=== PATIENT | female | born 1950 | race Caucasian/White ===

== ENCOUNTER 2017-03-20 09:08 | Emergency (ER) | payer MEDICARE, OTHER ==
[~2017-03-20] VITALS: Ht 165.1 cm; Wt 80.7 kg
[~2017-03-20 09:08] MED LIST: ACET-1574 PO; ACET-704 PO; ALLO100T PO; AMLO10TA2 PO; AMLO5TAB2 PO; ASPI325T8 PO; AZIT250T PO; BENZ100C PO; BISA5TAB4 PO; CEFE2PIG IV; CHOL2000 PO; CRESTOR10 MG PO; ESOM40CA PO; FLAX100017 PO; FOLI0.8T33 PO; FURO40TA4 PO; GLYB5TAB3 PO; GUAI5SYR PO; HYDR-2758 PO; HYDR115S2 PO; INSU100I13 SQ; IPRA3AMP NEB; IPRA3AMP23 IH; LEVO750T31 PO; LINA5TAB4 PO; LOSA100T6 PO; MAGN2400 PO; METF100010 PO; METF10002 PO; METO100T5 PO; METO2.5T PO; METO2.5T5 PO; OMEG1CAP6 PO; PANT40TA3 PO; PIOG15TA42 PO; POTA8CAP PO; PRED20TA PO; SERT50TA8 PO; SITA100T; SITA100T PO; VITA400C11 PO
[2017-03-20] MEDS ORDERED: HYDR-2758 PO (09:45)
[2017-03-20] MEDS ORDERED: CIPR10DR AS (09:45)
[2017-03-20] MEDS ORDERED: CLIN300C8 PO (09:45)
--- NOTE | 2017-03-20 09:45 | PHYS DOC ---
Past History Past Medical History: Anxiety, COPD, Depression, Diabetes, DVT, High Cholesterol, Hypertension Past Surgical History: Hysterectomy Smoking: Non-smoker Alcohol Use: None Drug Use: None Adult General Chief Complaint Chief Complaint: SORE THROAT HPI HPI She is a pleasant 75-year-old female with history of hypertension, hyperlipidemia, question will COPD, diabetes who presents with ear pain that began for 5 days ago. Patient began with itching she experience for 5 days ago in her left ear she's been attempting to use Q-tips to scratch that local itch. Since that time she had increasing pain over the ear itself with radiation to the left jaw and left lower portion of the stroke. She's had a mild sore throat with no change in voice some difficulty swallowing secondary to the pain without cough, fevers, chills or other symptoms. Patient denies any trauma to her face, denies any pain with chewing specifically over the teeth of her lower left jaw. Patient denies any hot and cold intolerance of those teeth. Patient further denies any headache, rash on her face or neck stiffness. Review of Systems Review of Systems Constitutional: Denies fever or chills [] Eyes: Denies change in visual acuity, redness, or eye pain [] HENT: Patient has had a sore throat without change in voice and no neck stiffness. Respiratory: Denies cough or shortness of breath [] Cardiovascular: No additional information not addressed in HPI [] GI: Denies abdominal pain, nausea, vomiting, bloody stools or diarrhea [] : Denies dysuria or hematuria [] Musculoskeletal: Denies back pain or joint pain [] Integument: Denies rash or skin lesions [] Neurologic: Denies headache, focal weakness or sensory changes [] Endocrine: Denies polyuria or polydipsia [] Allergies Allergies Allergies Coded Allergies Type Severity Reaction Last Updated Verified cefepime Allergy Intermediate Severe Nausea and Vomiting 01/07/14 Yes Physical Exam Physical Exam Vital signs recorded on the chart patient noted to be hypertensive. Constitutional: Well developed, well nourished, patient is obviously uncomfortable but no obvious swelling to the face.. [] HENT: Normocephalic, atraumatic, bilateral external ears normal, oropharynx moist, no oral exudates, patient has mild erythema but no tonsillar hypertrophy. Nose normal. Patient has redness and swelling in the external canal of the left ear. There is no obstruction no drainage. There is pain with movement of the tragus and over the external pinna.[] Eyes: PERRLA, EOMI, conjunctiva normal, no discharge. [] Neck: Normal range of motion, no tenderness, supple, no stridor. She does have reactive lymphadenopathy in anterior cervical chain. Cardiovascular:Heart rate regular rhythm, no murmur [] Lungs & Thorax: Bilateral breath sounds clear to auscultation [] Skin: Warm, dry, no erythema, no rash. [] Neurologic: Alert and oriented X 3, normal motor function, normal sensory function, no focal deficits noted. [] Psychologic: Affect normal, judgement normal, mood normal. [] EKG EKG [] Radiology/Procedures Radiology/Procedures [] Course & Med Decision Making Course & Med Decision Making Pertinent Labs and Imaging studies reviewed. (See chart for details) Patient rapid strep test is positive here in the emergency department as well as positive findings for otitis externa on the left. Post on appropriate antibiotics to treat both etiologies include acetic acid in order to treat and dry at the external ear. Patient will be given some steroids here in the emergency department to include by mouth Decadron as well as some Lortab to help with her symptoms. I will ask her to follow-up with her primary care doctor for repeat evaluation if symptoms not improved. [] Dragon Disclaimer Dragon Disclaimer This chart was dictated in whole or in part using Voice Recognition software in a busy, high-work load, and often noisy Emergency Department environment. It may contain unintended and wholly unrecognized errors or omissions. Departure Departure: Impression: Primary Impression: Pharyngitis Additional Impression: Otitis externa Disposition: 01 HOME, SELF-CARE Condition: IMPROVED Referrals: NON,STAFF (PCP) Patient Instructions: Otitis Externa, Viral and Bacterial Pharyngitis Additional Instructions: My discharge plan Follow up: In addition patient is asked to followup with their primary doctor, within a week for followup examination and to address patient's ongoing medical conditions. Because patient does not have a regular medical doctor, a local physician Resource Sheet will be provided to establish care primary care. Patient is advised that in the Emergency Department primary complaints are addressed and only in light of known signs and symptoms. Patient should return immediately to the emergency department if new signs and symptoms develop or patient's condition worsens in any way. At time of discharge patient was in stable condition and had verbalized understanding of the discharge instructions. Scripts Ciprofloxacin/Hydrocortisone (CIPRO HC OTIC SUSPENSION) 10 Ml Drops.susp 3 DROP BID, #10 ML Prov: ANIYA BACH MD 03/20/17 Hydrocodone Bit/Acetaminophen (HYDROCODONE-APAP 5-325 ) 1 Each Tablet 1 TAB PO PRN Q6HRS Y for PAIN for 5 Days, #14 TAB 0 Refills Prov: ANIYA BACH MD 03/20/17 Clindamycin Hcl (CLINDAMYCIN HCL) 300 Mg Capsule 1 CAP PO TID, #30 CAP Prov: ANIYA BACH MD 03/20/17 Problem Qualifiers ANIYA BACH MD Mar 20, 2017 09:45
[2017-03-20] MEDS ORDERED: DEXAMETHASONE SOD PHOS 10 MG/ML VIAL IV ONE (10:00)
[2017-03-20] MEDS ORDERED: HYDROcodone/APAP 5/325MG 1 TAB TABLET PO ONE (10:00)
[2017-03-20 10:04] VITALS: BP 162/73
== END 2017-03-20 10:05 | disposition home or self-care (01) ==
LOC: ER 09:08
DX: H60.92 Unspecified otitis externa, left ear (principal); J02.9 Acute pharyngitis, unspecified; E11.9 Type 2 diabetes mellitus without complications; E78.00 Pure hypercholesterolemia, unspecified; I10 Essential (primary) hypertension; J44.9 Chronic obstructive pulmonary disease, unspecified; Z86.718 Personal history of other venous thrombosis and embolism; Z88.8 Allergy status to other drugs, medicaments and biological substances
CPT/HCPCS: 87880; 96374; 99284; J1100

== ENCOUNTER → 2018-05-10 | Outpatient (CLI) | payer MEDICARE, OTHER ==
[~2018-05-10] MED LIST changes: -AMLO10TA2 PO; +AMLO10TA6 PO; -AMLO5TAB2 PO; +AMLO5TAB7 PO; +CIPR10DR AS; +CLIN300C8 PO; +HYDR-2155 PO; -HYDR-2758 PO; -IPRA3AMP NEB; +IPRA3AMP29 NEB; +IV NORMAL SALINE 1,000ML 1,000 ML IV ONE; +LOSA100T14 PO; -LOSA100T6 PO; -METF10002 PO; +METF10007 PO
[2018-05-10 16:03] VITALS: BP 128/79
== END | disposition home or self-care (01) ==
LOC: OPINF 15:55
PROVIDERS: ATTEND Family Medicine
DX: E86.0 Dehydration (principal); J44.9 Chronic obstructive pulmonary disease, unspecified; E78.00 Pure hypercholesterolemia, unspecified; E11.9 Type 2 diabetes mellitus without complications; I12.9 Hypertensive chronic kidney disease with stage 1 through stage 4 chronic kidney disease, or unspecified chronic kidney disease; E11.22 Type 2 diabetes mellitus with diabetic chronic kidney disease; N18.9 Chronic kidney disease, unspecified; K21.9 Gastro-esophageal reflux disease without esophagitis; J96.10 Chronic respiratory failure, unspecified whether with hypoxia or hypercapnia; G89.29 Other chronic pain; E78.5 Hyperlipidemia, unspecified; M10.9 Gout, unspecified; Z88.6 Allergy status to analgesic agent; Z88.1 Allergy status to other antibiotic agents; Z88.5 Allergy status to narcotic agent; Z88.8 Allergy status to other drugs, medicaments and biological substances; Z87.891 Personal history of nicotine dependence; Z87.01 Personal history of pneumonia (recurrent); Z86.718 Personal history of other venous thrombosis and embolism; Z79.82 Long term (current) use of aspirin
CPT/HCPCS: 36592; 96360; 96365; J7030

== ENCOUNTER → 2020-12-27 | Outpatient (CLI) | payer MEDICARE, OTHER ==
[2018-05-10 16:03] VITALS: BP 128/79
[~2020-12-27] MED LIST changes: -ACET-1574 PO; +ACET-1874 PO; +AMLO-186 PO; +AMLO-187 PO; -AMLO10TA6 PO; -AMLO5TAB7 PO; -CLIN300C8 PO; +CLIN300C9 PO; -IV NORMAL SALINE 1,000ML 1,000 ML IV ONE; -MAGN2400 PO; +MAGN24003 PO; +SERT-268 PO; -SERT50TA8 PO
--- NOTE | 2020-12-27 11:24 | RAD ---
EXAM: Chest, 2 views. HISTORY: Cough. COMPARISON: 06/13/2016 FINDINGS: 2 views of the chest are obtained. There are chronic appearing interstitial changes with velásquez perimposed lower lobe atelectasis or scarring. There is mild eventration of the right hemidiaphragm. There are clips overlying the right breast. There is a prominent cardiac silhouette. There is a promi nent right hilum likely due to prominent central pulmonary vessels or lymph nodes, stable in appearan ce. IMPRESSION: Chronic appearing interstitial changes with suspected lower lobe atelectasis or scarring. Electronically signed by: Pat Dougherty MD (12/27/2020 11:22 AM) [id number]
== END ==
LOC: RAD 10:48
PROVIDERS: ATTEND Nurse Practitioner Family
DX: J06.9 Acute upper respiratory infection, unspecified (principal); Q79.1 Other congenital malformations of diaphragm
CPT/HCPCS: 71046

== ENCOUNTER 2020-12-30 11:05 | Observation (INO) | payer MEDICARE, OTHER ==
[~2020-12-30] VITALS: Ht 165.1 cm; Wt 83.7 kg
[2020-12-30] MEDS ORDERED: IV NORMAL SALINE 1,000ML 1,000 ML IV ONE (11:30)
[2020-12-30] MEDS ORDERED: ONDANSETRON PF 4 MG/2 ML VIAL. IVP ONE (11:30)
--- NOTE | 2020-12-30 11:41 | PHYS DOC ---
Past History Past Medical History: Anxiety, COPD, Depression, Diabetes, DVT, High Cholesterol, Hypertension Past Surgical History: No Surgical History Smoking: Non-smoker Alcohol Use: None Drug Use: None General Adult EDM: Chief Complaint: DEHYDRATION HPI: HPI: 70-year-old female presents with headache, cough, 3 episodes of vomiting, and testing positive for COVID-19. Her primary care physician sent her to the emergency room for evaluation and for her dehydration and to see whether or not she needs to be hospitalized for COVID-19. She was vaccinated in July with the maternal vaccine. Patient is a smoker. No official COPD diagnosis. She does not use breathing treatments at home. She is not on oxygen. She states having low-grade fevers of 100. Denies chest pain. Review of Systems: Review of Systems: Constitutional: Fever, body aches, fatigue Eyes: Denies change in visual acuity HENT: Denies nasal congestion or sore throat Respiratory: Cough with shortness of breath Cardiovascular: Denies chest pain or edema GI: Nausea, Vomiting. Denies abdominal pain bloody stools or diarrhea : Denies dysuria Musculoskeletal: Denies back pain or joint pain Integument: Denies rash Neurologic: Denies headache, focal weakness or sensory changes Endocrine: Denies polyuria or polydipsia Lymphatic: Denies swollen glands Psychiatric: Denies depression or anxiety Current Medications: Current Meds: Current Medications Medications (Trade) Dose Ordered Sig/Parvin Start Time Stop Time Status Last Admin Dose Admin Ondansetron HCl (Zofran) 4 mg 1X ONCE 12/30/20 11:30 12/30/20 11:31 UNV Sodium Chloride 1,000 ml @ 1,000 mls/hr 1X ONCE 12/30/20 11:30 12/30/20 12:29 UNV Allergies: Allergies: Allergies Coded Allergies Type Severity Reaction Last Updated Verified cefepime Allergy Intermediate Severe Nausea and Vomiting 01/07/14 Yes Physical Exam: PE: Constitutional: Well developed, well nourished, no acute distress, non-toxic appearance. [] HENT: Normocephalic, atraumatic, bilateral external ears normal, oropharynx moist, no oral exudates, nose normal. [] Eyes: PERRLA, EOMI, conjunctiva normal, no discharge. [] Neck: Normal range of motion, no tenderness, supple, no stridor. [] Cardiovascular: Heart rate 60, regular rhythm, no murmur [] Lungs & Thorax: Bilateral expiratory wheezing throughout [] Abdomen: Bowel sounds normal, soft, no tenderness, no masses, no pulsatile masses. [] Skin: Warm, dry, no erythema, no rash. [] Back: No tenderness, no CVA tenderness. [] Extremities: No tenderness, no cyanosis, no clubbing, ROM intact, no edema. [] Neurologic: Alert and oriented X 3, normal motor function, normal sensory function, no focal deficits noted. [] Psychologic: Affect normal, judgement normal, mood normal. [] Current Patient Data: Vital Signs: Vital Signs Date Time Temp Pulse Resp B/P (MAP) Pulse Ox O2 Delivery O2 Flow Rate FiO2 12/30/20 11:20 98.2 95 22 130/53 98 Nasal Cannula 1.0 EKG: EKG: Sinus rhythm, rate 61, normal axis, no ST elevation or depression. [] Radiology/Procedures: Radiology/Procedures: [] Impressions: EXAM: Chest, single view. HISTORY: Covid 19. COPD. COMPARISON: 12/27/2020 FINDINGS: A frontal view of the chest is obtained. There is stable mild diffuse increased interstitial opacity. There is stable eventration of the right hemidiaphragm. There is a stable prominent cardiac silhouette. There is no consolidation, pleural effusion or pneumothorax. There are clips overlying the right breast. IMPRESSION: Stable diffuse interstitial prominence likely due to chronic interstitial change. No consolidated infiltrate is seen. Electronically signed by: Pat Velasco MD (12/30/2020 12:02 PM) [id number] DICTATED AND SIGNED BY: PAT VELASCO MD DATE: 12/30/20 1201 CC: BETHANY BRANCH DO; PAT FAJARDO MD ~MTH0 0 Heart Score: C/O Chest Pain: N/A Risk Factors: Risk Factors: DM, Current or recent (<one month) smoker, HTN, HLP, family history of CAD, obesity. Risk Scores: Score 0 - 3: 2.5% MACE over next 6 weeks - Discharge Home Score 4 - 6: 20.3% MACE over next 6 weeks - Admit for Clinical Observation Score 7 - 10: 72.7% MACE over next 6 weeks - Early Invasive Strategies Course & Med Decision Making: Course & Med Decision Making Pertinent Labs and Imaging studies reviewed. (See chart for details) The patient's chest x-ray is negative for acute findings. See official report for more details. Labs are significant for creatinine of 2.2. This is increased from her baseline of about 1.7. I will give her a liter of normal saline. The patient's urinalysis is suggestive of UTI. I will give her a gram of Rocephin. She is requiring supplemental oxygen to keep a saturation above 90%. I will admit her to the hospital. I spoke with Dr. Thomas and he has agreed to admission. [] Dragon Disclaimer: Dragon Disclaimer: This electronic medical record was generated, in whole or in part, using a voice recognition dictation system. Departure Departure: Impression: Primary Impression: COVID-19 Additional Impressions: Dehydration UTI (urinary tract infection) Qualified Codes: N30.01 - Acute cystitis with hematuria Disposition: ADMITTED INPATIENT Admitting Physician: Dimitrios Thomas Condition: STABLE Referrals: PAT FAJARDO MD (PCP) BETHANY BRANCH DO Dec 30, 2020 11:41
[2020-12-30] MEDS ORDERED: DEXAMETHASONE SOD PHOS 10 MG/ML VIAL. IVP ONE (12:00)
--- NOTE | 2020-12-30 12:04 | RAD ---
EXAM: Chest, single view. HISTORY: Covid 19. COPD. COMPARISON: 12/27/2020 FINDINGS: A frontal view of the chest is obtained. There is stable mild diffuse increased interstitia l opacity. There is stable eventration of the right hemidiaphragm. There is a stable prominent cardia c silhouette. There is no consolidation, pleural effusion or pneumothorax. There are clips overlying the right breast. IMPRESSION: Stable diffuse interstitial prominence likely due to chronic interstitial change. No cons olidated infiltrate is seen. Electronically signed by: Pat Dougherty MD (12/30/2020 12:02 PM) [email or web address]
[2020-12-30 12:10] LABS: BASO % 0 % (0-3); EOS % 0 % (0-3); HEMOGLOBIN 11.7 g/dL (12.0-15.5); LYMPH # 1.1 x10^3/uL (1.0-4.8); LYMPH % 21 % (24-48); MEAN CORPUSCULAR HEMOGLOBIN 31 pg (25-35); MEAN CORPUSCULAR HGB CONC 33 g/dL (31-37); MEAN CORPUSCULAR VOLUME 93 fL (79-100); MONO # 0.8 x10^3/uL (0.0-1.1); MONO % 15 % (0-9); NEUT # 3.2 x10^3uL (1.8-7.7); NEUT % 63 % (31-73); PLATELET COUNT 131 x10^3/uL (140-400); RED BLOOD COUNT 3.77 x10^6/uL (3.50-5.40); WHITE BLOOD COUNT 5.2 x10^3/uL (4.0-11.0)
[2020-12-30 12:15] LABS: BILIRUBIN,URINE NEG (NEG); CLARITY,URINE HAZY; COLOR,URINE YELLOW; GLUCOSE,URINE NEG (NEG); NITRITE,URINE NEG (NEG); UROBILINOGEN,URINE 0.2 mg/dL (0.2 mg/dL)
[2020-12-30 12:16] LABS: BACTERIA,URINE FEW /HPF (0-FEW); SQUAMOUS EPITHELIAL CELL,UR MOD /LPF; WBC,URINE TNTC /HPF (0-4)
[2020-12-30 12:20] LABS: CALCIUM 8.7 mg/dL (8.5-10.1); CREATININE 2.2 mg/dL (0.6-1.0); POTASSIUM 4.5 mmol/L (3.5-5.1)
[2020-12-30 12:26] LABS: ALBUMIN 3.2 g/dL (3.4-5.0); ALBUMIN/GLOBULIN RATIO 0.9 (1.0-1.7); TOTAL BILIRUBIN 0.3 mg/dL (0.2-1.0); TOTAL PROTEIN 6.6 g/dL (6.4-8.2)
--- NOTE | 2020-12-30 12:59 | EKG ---
[address] [address] Test Date: 2020-12-30 Test Time: 11:30:39 Pat Name: KLAUDIA WELLS Department: Room: Gender: F Intelligence Intern: CONCHITA : 1950 Requested By: BETHANY BRANCH Order Number: [id number] Reading MD: Measurements Intervals Dodson Rate: 61 P: 54 MS: 214 QRS: -26 QRSD: 94 T: 33 QT: 408 QTc: 412 Interpretive Statements SINUS RHYTHM LEFTWARD AXIS OTHERWISE NORMAL ECG RI6.02 No previous ECG available for comparison
[2020-12-30] MEDS ORDERED: ONDANSETRON PF 4 MG/2 ML VIAL. IVP PRN (13:30)
[2020-12-30] MEDS: ACETAMINOPHEN 325 MG TABLET PO PRN (14:38)
--- NOTE | 2020-12-30 15:58 | NUR ---
ADMIT PT ARRIVES ON FLOOR VIA EMS FROM ED. SHE IS WEARING 1.5L/NC, TRANSFERS FROM COT WITH ASSIST X 1. LOWER EXTREMITIES ARE WEAK BUT SHE IS ABLE TO TRANSFER. VS ASSESSED, TELE APPLIED. HISTORY REVEIWED, INCLUDING HOME MEDICATIONS. ORIENTED TO ROOM, CALL LIGHT IN REACH.
[2020-12-30] MEDS ORDERED: ASPI-630 PO (16:28)
[2020-12-30] MEDS ORDERED: [UNRECOGNIZED DRUG - OTHER] SQ (16:28)
[2020-12-30] MEDS ORDERED: ALLO100T PO (16:28)
[2020-12-30] MEDS ORDERED: CLOP75TA PO (16:28)
[2020-12-30] MEDS ORDERED: PANT40TA6 PO (16:30)
[2020-12-30] MEDS ORDERED: CRESTOR40 MG PO (16:30)
[2020-12-30] MEDS ORDERED: FERR325T14 PO (16:30)
[2020-12-30] MEDS ORDERED: PRED20TA PO (16:30)
[2020-12-30] MEDS ORDERED: SERT50TA PO (16:31)
[2020-12-30 16:35] VITALS: BP 119/69
[2020-12-30] MEDS ORDERED: INSU100C SQ (20:44)
[2020-12-30] MEDS ORDERED: INSULIN GLARGINE SYRINGE. SQ ONE (21:30)
[2020-12-30] MEDS: DEXAMETHASONE SOD PHOS 4 MG/ML VIAL. IVP SCH (21:52)
[2020-12-30 22:21] VITALS: BP 129/59
[2020-12-31] MEDS: ACETAMINOPHEN 325 MG TABLET PO PRN (03:07)
[2020-12-31 06:17] VITALS: BP 138/64
[2020-12-31] MEDS: DEXAMETHASONE SOD PHOS 4 MG/ML VIAL. IVP SCH (09:00)
[2020-12-31] MEDS ORDERED: ALLOPURINOL 100 MG TABLET. PO SCH (09:00)
[2020-12-31 09:20] LABS: CALCIUM 8.6 mg/dL (8.5-10.1); CREATININE 1.9 mg/dL (0.6-1.0); GFR 26.1; POTASSIUM 4.9 mmol/L (3.5-5.1)
--- NOTE | 2020-12-31 09:23 | HP ---
ADMIT DATE: 12/30/2020 ATTENDING PHYSICIAN: Dr. Thomas. CHIEF COMPLAINT: Weakness. HISTORY OF PRESENT ILLNESS: The patient is a 70-year-old female, who was diagnosed testing positive for COVID-19 zee virus 6 days ago. Her PCP sent her to the ER for evaluation. She was dehydrated and she had some gastrointestinal losses. She has minimal respiratory symptoms. She is a smoker. She has no COPD diagnosis. She does not use breathing treatments. In the ED, her chest x-ray was unremarkable. Her creatinine is 2.2 mg/dL. Clinically, she appears mildly dehydrated. She was admitted for further IV treatment. Because of her diabetes, we did not institute any high dose of steroids at this time. PAST MEDICAL HISTORY: Significant for COVID diagnosis, 6 days ago. She has underlying depression, anxiety, COPD, type 2 diabetes, history remotely of DVT, hypertension, hyperlipidemia. ALLERGIES: CEFEPIME, EXACT REACTION IS UNCLEAR. CURRENT MEDICATIONS: At home include the following: She was taking allopurinol, amlodipine, aspirin, Plavix, ferrous sulfate, folic acid, regular Lantus insulin, Tradjenta, metoprolol, Protonix, Crestor, Zoloft, vitamin E, and vitamin D. SOCIAL HISTORY: She is a smoker as noted. She denies any alcohol use. She is . Her children are grown. She is retired. REVIEW OF SYSTEMS: Significant for the GI losses. No dyspnea. She has a mild nonproductive cough. All other systems reviewed and turned to be negative. PHYSICAL EXAMINATION: GENERAL: When I saw her, this is a pleasant, middle-aged female. VITAL SIGNS: Her initial vital signs showed a blood pressure 136/64, pulse was 85 and regular, temperature 97.6 degrees Fahrenheit. Her oxygen saturation 94% on room air. HEENT: Head is without trauma. Pupils are reactive. Sclerae nonicteric. Oropharynx clear. NECK: Supple. No bruits. LUNGS: Fairly good breath sounds without any stridor. CARDIOVASCULAR: Showed regular heart tones. No gallops. ABDOMEN: Soft. EXTREMITIES: Without edema. Neurologic function focally intact. SKIN: Warm and dry. NEUROLOGIC: Speech is fluent. No focal deficits. PERTINENT LABORATORY STUDIES: Reviewed. Her hemoglobin was 11.7 g/dL with a white count of 5200. Electrolytes within normal range. BUN 57, creatinine 2.2 mg/dL. Nonfasting blood sugar 145 mg/dL. Chest x-ray shows stable interstitial prominence. No consolidation or new infiltrates. ASSESSMENT: 1. A 70-year-old female with recent COVID infection. She is stable from a respiratory standpoint. 2. Chronic kidney disease stage IV. 3. Mild dehydration. 4. Type 2 diabetes. 5. Hypertension. 6. Underlying depression with anxiety. PLAN: 1. Admit to the inpatient unit. 2. Gentle IV hydration. 3. We will hold off steroids for now as I do not think she needs it and given her underlying diabetes. 4. Follow up chemistries in the morning. 5. Continue home meds. SEA DR: Mohinder TID: [id number] CC: MAJOR FAJARDO MD
[2020-12-31] MEDS ORDERED: PANTOPRAZOLE 40 MG TABLET. PO SCH (09:30)
[2020-12-31] MEDS ORDERED: SERTRALINE 50 MG TABLET. PO SCH (09:30)
[2020-12-31] MEDS ORDERED: CLOPIDOGREL BISULFATE 75 MG TABLET PO SCH (09:30)
[2020-12-31] MEDS ORDERED: ASPIRIN CHEWABLE 81 MG TABLET. PO SCH (09:30)
[2020-12-31] MEDS ORDERED: FERROUS SULFATE 325 MG TABLET. PO SCH (09:30)
[2020-12-31] MEDS ORDERED: VITAMIN E. 400 UNIT CAPSULE. PO SCH (09:30)
--- NOTE | 2020-12-31 10:04 | NUR ---
pt being discharged, states if she doesn't need the steroid at home she doesn't want to take it here. pt all refusing all morning medications,states she will take her own when she goes home
--- NOTE | 2020-12-31 10:22 | NUR ---
called pt sister, airam saenz and reviewed discharge instructions with her. verbalized understanding.
--- NOTE | 2020-12-31 10:43 | NUR ---
pt wheeled out via wheelchair to car with . all belongings sent with pt. Addendum: 12/31/20 at 1043 by CHRISTINA VARGAS RN piv and andrés eppsd
[2020-12-31] MEDS ORDERED: INSULIN LISPRO 300 UNITS/3 ML VIAL. SQ SCH (17:00)
[2020-12-31] MEDS ORDERED: METOPROLOL SUCC 24HR ER 50 MG TAB.ER.24H. PO SCH (17:00)
[2020-12-31] MEDS ORDERED: LINAGLIPTIN 5 MG TABLET PO SCH (17:00)
--- NOTE | 2020-12-31 20:28 | DS ---
DATE OF DISCHARGE: 12/31/2020 ATTENDING PHYSICIAN: Dr. Thomas. FINAL DISCHARGE DIAGNOSES: 1. Dehydration. 2. Gastroenteritis. 3. Recent COVID coronavirus infection. 4. She has been vaccinated in the past. 5. Chronic kidney disease stage 4. 6. Type 2 diabetes. 7. Essential Hypertension. 8. Underlying depression with anxiety. HISTORY AND PHYSICAL: The patient is a pleasant 70-year-old female admitted through the ED with some nausea, weakness, dehydration and recent diagnosis of COVID a week ago. PHYSICAL EXAMINATION: Please see the dictated note. PERTINENT LABORATORY AND X-RAY STUDIES: Admission hemoglobin was 11.7 g/dL, white count 5200. Admission creatinine was 2.2 mg percent, with hydration repeat was down to 1.9 mg/dL. Sodium 133 mEq, potassium 4.9 mEq, nonfasting blood sugar 182. Troponins were negative. Liver panel unremarkable. COURSE IN THE HOSPITAL: The patient was admitted. She had no respiratory symptoms. She was able to have adequate oxygen saturation on room air. Creatinine on admission was 2.2. She was concerned because she has 2 siblings currently on maintenance hemodialysis. I reassured her that she is quite a bit away from end-stage renal failure. Repeat creatinine the next day was 1.9 mg percent. Therefore, she is stable. She is going to recover from her coronavirus infection over time. I recommended some Tussionex 5 mL q. 12 hours p.r.n. cough. Other home meds remain unchanged. She should continue her allopurinol, amlodipine, aspirin, Plavix, ferrous sulfate, insulin Lantus and regular, Tradjenta, metoprolol, Crestor, Zoloft, and vitamin E doses unchanged. She was discharged then from our hospital in stable condition with explicit drug and followup care. JOSEPH DR: Mohinder TID: [id number] CC: MAJOR FAJARDO MD
[2020-12-31] MEDS ORDERED: amLODIPine BESYLATE 10 MG TABLET PO SCH (21:00)
[2020-12-31] MEDS ORDERED: INSULIN GLARGINE SYRINGE. SQ SCH (21:00)
[2020-12-31] MEDS ORDERED: ATORVASTATIN CALCIUM 20 MG TABLET PO SCH (21:00)
== END 2020-12-31 11:20 | disposition home or self-care (01) ==
LOC: ER 11:10 → INTOOBSV 13:17 → 1 SOUTH 13:17
PROVIDERS: ADMIT Hospitalist; ATTEND Hospitalist
DX: U07.1 COVID-19 (principal); K52.9 Noninfective gastroenteritis and colitis, unspecified; E86.0 Dehydration; I12.0 Hypertensive chronic kidney disease with stage 5 chronic kidney disease or end stage renal disease; E11.22 Type 2 diabetes mellitus with diabetic chronic kidney disease; N18.6 End stage renal disease; J44.9 Chronic obstructive pulmonary disease, unspecified; N30.01 Acute cystitis with hematuria; E78.00 Pure hypercholesterolemia, unspecified; E78.5 Hyperlipidemia, unspecified; F41.8 Other specified anxiety disorders; F17.200 Nicotine dependence, unspecified, uncomplicated; Z99.2 Dependence on renal dialysis; Z79.899 Other long term (current) drug therapy
CPT/HCPCS: 36415; 71045; 71046; 80053; 81001; 82947; 84484; 85025; 87077; 87086; 87186; 93005; 96361; 96374; 96375; 96376; 99285; G0378; J1100; J1815; J2405; J7030; 80048; G0379

== ENCOUNTER 2021-01-02 23:13 | Inpatient (IN) | payer MEDICARE, OTHER ==
[~2021-01-02] VITALS: Ht 165.1 cm; Wt 86.8 kg
[~2021-01-02 23:13] MED LIST changes: +ASPI-630 PO; +CLOP75TA PO; +CRESTOR40 MG PO; +FERR325T14 PO; +INSU100C SQ; +PANT40TA6 PO; +SERT50TA PO; +[UNRECOGNIZED DRUG - OTHER] SQ
--- NOTE | 2021-01-02 23:23 | PHYS DOC ---
Past History Past Medical History: Anxiety, COPD, Depression, Diabetes, DVT, High Cholesterol, Hypertension Past Surgical History: No Surgical History Smoking: Non-smoker Alcohol Use: Occasionally Drug Use: None General Adult HPI: HPI: ".. I got COVID,,, I got admitted on the .. Dr. Thomas sent me home.. I just not doing any better... now more short of breath... can't walk across room... without getting winded... "..We where down at earlier tonight...but we where on the wait list to get into the ER.. So we came back here to be seen..." Patient is a 70 year old female who presents with above hx of + COVID test end of November. Pt. eventually require admit on 12/30 for viral symptoms and dehydration. Pt. did complete COVID vaccination in July with Moderna vaccine. Pt. now increased dyspnea, hypoxia on room air. Desaturates into the 70s with any activity. Pt. complaints of increased abdomen pain and dyspnea on this presentation. Patient does not have home oxygen available. Patient complains of generalized myalgia, arthralgia, malaise, cephalgia, nonproductive cough, nausea, dehydration and vomiting. Patient has significant past medical history of anxiety, COPD, depression, diabetes, DVT, elevated cholesterol, hypertension, breast cancer with mastectomy, ,.. Patient normally follows with Dr. Fajardo Review of Systems: Review of Systems: Constitutional: Complains of fever or chills Eyes: Denies change in visual acuity HENT: Denies nasal congestion or sore throat Respiratory: Complains of cough and shortness of breath Cardiovascular: Complaints of chest pain or edema GI: Complains of abdominal pain, nausea, vomiting,. Denies bloody stools or diarrhea : Denies dysuria Musculoskeletal: Complains of generalized back pain or joint pain Integument: Denies rash Neurologic: Denies headache, focal weakness or sensory changes Endocrine: Denies polyuria or polydipsia Lymphatic: Denies swollen glands Psychiatric: Denies depression or anxiety Family History: Family History: Noncontributory to presentation Current Medications: Current Meds: See nursing for home meds Allergies: Allergies: Allergies Coded Allergies Type Severity Reaction Last Updated Verified cefepime Allergy Intermediate Severe Nausea and Vomiting 01/07/14 Yes Physical Exam: PE: Constitutional: Morbidly obese, patient appears acute respiratory distress, ill in appearance. [] HENT: Normocephalic, atraumatic, bilateral external ears normal, oropharynx dry , no oral exudates, nose swollen turbinates and clear rhinorrhea Eyes: PERRLA, EOMI, conjunctiva mild injection, no discharge. [] Neck: Normal range of motion, no tenderness, supple, no stridor. [] Cardiovascular:Heart rate regular rhythm, no murmur, PMI to left Lungs & Thorax: Bilateral breath sounds equal apex scattered wheezes on auscultation. Bibasilar crackles on auscultation. [] right mastectomy scar Abdomen: Bowel sounds normal, soft, right upper quadrant and epigastric tenderness, no masses, no pulsatile masses. Morbidly obese. Old surgical scar Skin: Warm, dry, no erythema, no rash. [] Back: No tenderness, no CVA tenderness. [] Extremities: No tenderness, no cyanosis, no clubbing, ROM intact, bilateral lower leg edema. [] Neurologic: Alert and oriented X 3, normal motor function, normal sensory function, no focal deficits noted. [] Psychologic: Affect anxious, judgement normal, mood depressed.] EKG: EKG: My interpretation EKG #1 shows a sinus rhythm at 72 bpm. There are some leftward axis changes. No findings acute STEMI with contralateral changes time of this EKG is 00 43 minutes My interpretation EKG #2 shows a sinus rhythm at 76 bpm. Does have occasional premature atrial complex. There is leftward axis. No significant interval change from prior EKG. [] Time of this EKG is 0310 hrs. Radiology/Procedures: Radiology/Procedures: [][place] [address] IMAGING REPORT Signed PATIENT: KLAUDIA WELLS ACCOUNT: [id number] : 1950 LOCATION: ER AGE: 70 SEX: F EXAM STATUS: REG ER ORD. PHYSICIAN: KATHY OCASIO MD REASON: cp, dypnea, + COVID, NAUSEA, OMNI 350, 75ml & OMNI 240, 30ml PROCEDURE: CT ANGIO CHEST W ABD PEL W/ STUDY: 1. CT angiography of the chest-PE protocol 2. CT abdomen pelvis with contrast INDICATION: Chest pain, dyspnea, Covid positive and nausea. COMPARISON: CT chest, abdomen and pelvis 07/25/2013; CT abdomen/pelvis 08/03/2013 TECHNIQUE: Helical CT angiography of the chest timed for evaluation of the pulmonary arteries. 75 cc Omnipaque [address] imaging was also performed of the abdomen/pelvis with contrast. 3D MIP reconstructions through the chest. Routine coronal and sagittal reformats through the abdomen/pelvis. One or more of the following individualized dose reduction techniques were utilized for this examination: 1. Automated exposure control 2. Adjustment of the mA and/or kV according to patient size 3. Use of iterative reconstruction technique. FINDINGS: CHEST: Hindered assessment of the smaller pulmonary arteries due to a combination of respiratory motion and patient body habitus. Taking this into consideration, no pulmonary embolism is identified. Mildly dilated main pulmonary artery. Extensive atheromatous plaque to include marked trivessel coronary artery involvement. No evidence for a flow-limiting stenosis at the great vessel origins though there appears to be a nnju-ji-ovwoyehv stenosis of the right axillary artery. No aortic aneurysm or definitive dissection noting bolus timing. Small hiatal hernia. Multiple prominent mediastinal lymph nodes. Concrete Pointer lymph node at the aortopulmonic window on image 48 series 5 measures 1.8 cm. Note is made that the prominence was also present on the 07/25/2013 comparison. Emphysema with scattered pleuroparenchymal scarring. Groundglass and reticular opacities most notable at the upper half of both lungs but with basilar involvement as well. Diffuse bronchial wall thickening which is mild. No pleural effusion. No axillary adenopathy. Unremarkable thyroid. Surgical changes involving the right breast. Osteopenia and scattered degenerative changes. Mild superior endplate height loss at T4 is chronic. ABDOMEN/PELVIS: Motion degradation. No focal abnormality of the liver. Probable mild hepatic steatosis. No CT manifestations of acute cholecystitis. No biliary ductal dilatation. Fatty infiltration of the pancreas. Mild enlargement of the spleen measured at 14 cm craniocaudal. Unchanged adrenal gland morphology. Multiple renal low-attenuation foci which are incompletely evaluated in part related to motion. There is an intermediate density focus partially exophytic off the medial margin of the left kidney upper pole on image 51 series 9 measuring 1.3 cm AP. This was not seen on the comparison. Ill-defined renal cortical hypoattenuation at the posterior aspect of the mid right kidney on image 68 series 9 measuring 2.3 cm transverse which is nonspecific but would not be typical for a renal infarct. No hydronephrosis. Unchanged urinary bladder and uterus. No significant adnexal abnormality. Colonic diverticulosis without diverticulitis. Normal appendix, image 105 series 9. Nonobstructed small bowel. Unremarkable stomach. Extensive calcific atherosclerosis. Presumed at least moderate stenosis at the SMA origin but not well characterized. No lymphadenopathy. Osteopenia and scattered chronic/degenerative findings. Severe discogenic arthrosis at L5-S1. IMPRESSION: CHEST: 1. Limited evaluation of the peripheral pulmonary arteries due to respiratory motion and patient body habitus. Taking this into consideration, no pulmonary embolism. 2. Infiltrates scattered throughout both lungs suspicious for an atypical/viral pneumonia. Background emphysema and pleural parenchymal scarring. Follow-up is recommended to confirm resolution given the presence of emphysema. 3. Multiple prominent mediastinal lymph nodes. A benign/reactive etiology is felt most likely given that lymph node enlargement was also present on September 2013 comparison. These can be further assessed for stability on a follow-up CT. 4. Additional chronic observations detailed in the body of the report to include severe trivessel calcific coronary artery disease. ABDOMEN/PELVIS: 1. Limited study due to motion. 2. Multiple hypoattenuating foci scattered throughout both kidneys increased in size and number from the 2014 comparison. Additionally there is an intermediate density focus exophytic off the upper left kidney measuring 1.3 cm which could represent a mass (image 51 series 9). These are poorly characterized due to technique and motion. Follow up CT renal mass protocol is recommended. 3. At least moderate stenosis at the proximal SMA due to dense calcific plaque. 4. Additional chronic findings described above. Electronically signed by: KARLIE VAZQUEZ MD (01/03/2021 3:39 AM) [facility] DICTATED AND SIGNED BY: KARLIE VAZQUEZ MD DATE: 01/03/21 0320 CC: KATHY OCASIO MD; MAJOR FAJARDO MD ~MTH0 0 Heart Score: C/O Chest Pain: Yes HEART Score for Chest Pain: HEART Score for Chest Pain Response (Comments) Value History Moderately Suspicious 1 ECG Nonspecific Repolarizatio 1 Age > 65 2 Risk Factors 1 or 2 Risk Factors 1 Troponin < Normal Limit 0 Total 5 Risk Factors: Risk Factors: DM, Current or recent (<one month) smoker, HTN, HLP, family history of CAD, obesity. Risk Scores: Score 0 - 3: 2.5% MACE over next 6 weeks - Discharge Home Score 4 - 6: 20.3% MACE over next 6 weeks - Admit for Clinical Observation Score 7 - 10: 72.7% MACE over next 6 weeks - Early Invasive Strategies Course & Med Decision Making: Course & Med Decision Making Pertinent Labs and Imaging studies reviewed. (See chart for details) Discussed presentation, testing and treatment plan with Dr. Thomas. Advised to admit patient to his service. Patient also received 60 mg of Solu-Medrol a day . Supplement oxygen patient as needed. Impression: 1. Covid pneumonia 2. Respiratory failure hypoxia 3. Diabetes 4. History of COPD 5. Anemia Hg11.6 6. Elevated D-dimer 1,33 7. Morbidly obese. 8. Elevated CRP 52.4 9. Patient did receive both Moderna vaccinations- August2020 10.Abdomen pain 11. Dehydration 12. Dx. of COVID December 21 [] Wilder Disclaimer: Wilder Disclaimer: This electronic medical record was generated, in whole or in part, using a voice recognition dictation system. Departure Departure: Referrals: MAJOR FAJARDO MD (PCP) KATHY OCASIO MD Jan 02, 2021 23:23
[2021-01-03] MEDS ORDERED: ALBUTEROL SULFATE 8GM INHALER. ONE (00:27)
[2021-01-03] MEDS ORDERED: IV RINGERS SOLUTION,LACTATED 1,000 ML IV SCH (00:45)
[2021-01-03] MEDS ORDERED: ALBUTEROL SULFATE 8GM INHALER. INH ONE (00:45)
[2021-01-03 01:00] LABS: BASO % 0 % (0-3); EOS % 1 % (0-3); HEMATOCRIT 35.2 % (36.0-47.0); HEMOGLOBIN 11.6 g/dL (12.0-15.5); LYMPH # 0.9 x10^3/uL (1.0-4.8); LYMPH % 11 % (24-48); MEAN CORPUSCULAR HEMOGLOBIN 31 pg (25-35); MEAN CORPUSCULAR HGB CONC 33 g/dL (31-37); MEAN CORPUSCULAR VOLUME 93 fL (79-100); MONO # 1.1 x10^3/uL (0.0-1.1); MONO % 13 % (0-9); NEUT # 6.3 x10^3uL (1.8-7.7); NEUT % 75 % (31-73); PLATELET COUNT 175 x10^3/uL (140-400); RED BLOOD COUNT 3.79 x10^6/uL (3.50-5.40); RED CELL DISTRIBUTION WIDTH 14.5 % (11.5-14.5); WHITE BLOOD COUNT 8.4 x10^3/uL (4.0-11.0)
[2021-01-03] MEDS ORDERED: IOHEXOL 350 MG/ML 100 ML VIAL. IV ONE (01:00)
[2021-01-03] MEDS ORDERED: IOHEXOL 240 MG/ML 50ML VIAL. PO ONE (01:00)
[2021-01-03 01:06] LABS: CALCIUM 8.6 mg/dL (8.5-10.1); CREATININE 1.4 mg/dL (0.6-1.0); GFR 37.1; POTASSIUM 4.9 mmol/L (3.5-5.1)
[2021-01-03] MEDS ORDERED: ACETAMINOPHEN 500 MG TABLET PO ONE (01:15)
[2021-01-03 01:19] LABS: ALBUMIN 2.8 g/dL (3.4-5.0); C REACTIVE PROTEIN 52.4 mg/L (0-3.3); DIRECT BILIRUBIN 0.1 mg/dL (0.0-0.2); MAGNESIUM 1.9 mg/dL (1.8-2.4); TOTAL BILIRUBIN 0.4 mg/dL (0.2-1.0); TOTAL PROTEIN 7.2 g/dL (6.4-8.2)
--- NOTE | 2021-01-03 01:27 | EKG ---
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
--- NOTE | 2021-01-03 02:28 | RAD ---
Study: XR CHEST 1V Indication: Chest pain. Comparison: 12/30/2020 Findings: Similar scattered linear densities bilaterally in addition to hazy attenuation at the subpleural and basilar aspect of both lungs. No increasing effusion or pneumothorax. Unchanged configuration of the cardiomediastinal silhouette and brandon noting differences in patient positioning from the prior. Aorti c calcific atherosclerosis. Osteopenia. Impression: Similar appearance of the chest from 12/30/2020. Again noted are findings involving the lungs which cou ld represent chronic changes of the interstitium. No newly seen infiltrate or pleural effusion. Electronically signed by: KARLIE VAZQUEZ MD (01/03/2021 2:26 AM) [facility]
--- NOTE | 2021-01-03 03:42 | RAD ---
STUDY: 1. CT angiography of the chest-PE protocol 2. CT abdomen pelvis with contrast INDICATION: Chest pain, dyspnea, Covid positive and nausea. COMPARISON: CT chest, abdomen and pelvis 07/25/2013; CT abdomen/pelvis 08/03/2013 TECHNIQUE: Helical CT angiography of the chest timed for evaluation of the pulmonary arteries. 75 cc Omnipaque [address] imaging was also performed of the abdomen/pelvis with contrast. 3D MIP reconstructions through the chest. Routine coronal and sagittal reformats through the abdomen/pelvis . One or more of the following individualized dose reduction techniques were utilized for this examinat ion: 1. Automated exposure control 2. Adjustment of the mA and/or kV according to patient size 3. Use of iterative reconstruction technique. FINDINGS: CHEST: Hindered assessment of the smaller pulmonary arteries due to a combination of respiratory motion and patient body habitus. Taking this into consideration, no pulmonary embolism is identified. Mildly dil ated main pulmonary artery. Extensive atheromatous plaque to include marked trivessel coronary artery involvement. No evidence fo r a flow-limiting stenosis at the great vessel origins though there appears to be a uugz-rc-bultthdh stenosis of the right axillary artery. No aortic aneurysm or definitive dissection noting bolus timin g. Small hiatal hernia. Multiple prominent mediastinal lymph nodes. Delivery Truck Driver lymph node at the aor topulmonic window on image 48 series 5 measures 1.8 cm. Note is made that the prominence was also pre sent on the 07/25/2013 comparison. Emphysema with scattered pleuroparenchymal scarring. Groundglass and reticular opacities most notable at the upper half of both lungs but with basilar involvement as well. Diffuse bronchial wall thicken ing which is mild. No pleural effusion. No axillary adenopathy. Unremarkable thyroid. Surgical changes involving the right breast. Osteopenia and scattered degenerative changes. Mild superior endplate height loss at T4 is chronic. ABDOMEN/PELVIS: Motion degradation. No focal abnormality of the liver. Probable mild hepatic steatosis. No CT manifestations of acute cho lecystitis. No biliary ductal dilatation. Fatty infiltration of the pancreas. Mild enlargement of the spleen measured at 14 cm craniocaudal. Unchanged adrenal gland morphology. Multiple renal low-attenuation foci which are incompletely evaluated in part related to motion. There is an intermediate density focus partially exophytic off the medial margin of the left kidney upper pole on image 51 series 9 measuring 1.3 cm AP. This was not seen on the comparison. Ill-defined renal cortical hypoattenuation at the posterior aspect of the mid right kidney on image 68 series 9 measur ing 2.3 cm transverse which is nonspecific but would not be typical for a renal infarct. No hydroneph rosis. Unchanged urinary bladder and uterus. No significant adnexal abnormality. Colonic diverticulosis without diverticulitis. Normal appendix, image 105 series 9. Nonobstructed sma ll bowel. Unremarkable stomach. Extensive calcific atherosclerosis. Presumed at least moderate stenosis at the SMA origin but not wel l characterized. No lymphadenopathy. Osteopenia and scattered chronic/degenerative findings. Severe discogenic arthrosis at L5-S1. IMPRESSION: CHEST: 1. Limited evaluation of the peripheral pulmonary arteries due to respiratory motion and patient bod y habitus. Taking this into consideration, no pulmonary embolism. 2. Infiltrates scattered throughout both lungs suspicious for an atypical/viral pneumonia. Backgroun d emphysema and pleural parenchymal scarring. Follow-up is recommended to confirm resolution given th e presence of emphysema. 3. Multiple prominent mediastinal lymph nodes. A benign/reactive etiology is felt most likely given that lymph node enlargement was also present on September 2013 comparison. These can be further assessed fo r stability on a follow-up CT. 4. Additional chronic observations detailed in the body of the report to include severe trivessel ca lcific coronary artery disease. ABDOMEN/PELVIS: 1. Limited study due to motion. 2. Multiple hypoattenuating foci scattered throughout both kidneys increased in size and number from the 2013 comparison. Additionally there is an intermediate density focus exophytic off the upper lef t kidney measuring 1.3 cm which could represent a mass (image 51 series 9). These are poorly characte rized due to technique and motion. Follow up CT renal mass protocol is recommended. 3. At least moderate stenosis at the proximal SMA due to dense calcific plaque. 4. Additional chronic findings described above. Electronically signed by: KARLIE VAZQUEZ MD (01/03/2021 3:39 AM) [facility]
[2021-01-03] MEDS ORDERED: methylPREDNISolone SOD SUCC PF 40 MG/ML VIAL. IV ONE (04:45)
[2021-01-03] MEDS ORDERED: ACETAMINOPHEN 325 MG TABLET PO PRN (05:00)
[2021-01-03] MEDS ORDERED: ONDANSETRON PF 4 MG/2 ML VIAL. IVP PRN (05:00)
--- NOTE | 2021-01-03 05:01 | EKG ---
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
[2021-01-03 06:00] VITALS: BP 132/69
--- NOTE | 2021-01-03 06:00 | NUR ---
ADMISSION: The patient, KLAUDIA WELLS, 70 y/o, F admitted by DARLYN BRAMBILA MD, was given written information regarding hospital policies, unit procedures and contact persons. Pt arrived to room 123 via gurney, accompanied by [facility] and nursing sup. Pt returned to ED after recent stay here on 12/30/20 for COVID-19. Pt reports she is still SOA and coughing, unable to catch her breath. Pt requiring O2 at 2L via NC to keep spO2 at 92%. Pt does not wear supplemental O2 at home. Pt oriented to room and POC discussed, V/U. Call light in reach. Valuables were checked and logged.
[2021-01-03] MEDS ORDERED: CEPH500C PO (06:35)
[2021-01-03] MEDS: ALBUTEROL SULFATE 8GM INHALER. INH SCH ×4 (09:00→19:20)
[2021-01-03] MEDS ORDERED: APIXABAN 5 MG TABLET. PO SCH (09:00)
[2021-01-03] MEDS: NON FORMULARY ITEM (Cephalexin 1 CAP) PO SCH ×3 (09:00→17:00)
--- NOTE | 2021-01-03 09:10 | HP ---
ADMIT DATE: 01/03/2021 CHIEF COMPLAINT: Shortness of breath. HISTORY OF PRESENT ILLNESS: The patient is a 70-year-old female well known to me. She was admitted initially on 12/30/2020 with symptoms of dehydration. She did have tested positive for COVID. She did not have too much respiratory symptoms at that time. She got better the next day, she was sent home. Her creatinine at that time was a concern, she came in at 2.2 mg percent, she went home at 1.9 mg/dL, today is down to 1.4 mg/dL. The problem is respiratory. She has significant emphysema. Unfortunately, she continues to smoke. Her CT of the chest showed no evidence of blood clot. There is significant emphysematous changes throughout the lung hernandez. There is some diffuse ground glass appearing infiltrates at the bases consistent with a viral pneumonia. She required 2 liters of supplemental oxygen. She was readmitted then with acute on chronic respiratory failure. PAST MEDICAL HISTORY: Significant for the admission overnight on 12/30/2020. She has type 2 diabetes, insulin-dependent. She has underlying depression, anxiety and hypertension. She also is on chronic anticoagulation. ALLERGIES: SHE HAS ALLERGIES TO CEFEPIME, EXACT REACTION IS UNCLEAR. CURRENT MEDICATIONS: Include allopurinol, Eliquis, amlodipine, Plavix, ferrous sulfate, insulin regular and Lantus, Tradjenta, metoprolol, Protonix, Crestor, Zoloft, and vitamin E. SOCIAL HISTORY: No drinking history. Smoking history as noted. Unfortunately, she states she is not smoking, but the family member say otherwise. FAMILY HISTORY: Noncontributory. REVIEW OF SYSTEMS: Significant for generalized weakness. She has dyspnea with exertion. She has calcifications in her coronaries found on the CT of the chest. Unfortunately, she continues to smoke. She is diabetic. She had an episode of hypoglycemia. We held her Tradjenta to insulin for now. She denied any nausea. No fevers. All other systems reviewed and turned to be negative. PHYSICAL EXAMINATION: GENERAL: When I saw her, this is a pleasant elderly female. She was not in any acute distress. VITAL SIGNS: Her initial vital signs showed a respiratory rate of 20 per minute. Her temperature was 98.7 degrees Fahrenheit, blood pressure 132/69 mmHg, oxygen saturation 95% on 2 liters by nasal cannula. HEENT: Head is without trauma. Pupils are reactive. Sclerae nonicteric. Oropharynx clear. NECK: Supple, no bruits. LUNGS: Minimal rhonchi in the upper airways. CARDIOVASCULAR: Showed regular heart tones. No gallops. ABDOMEN: Soft, obese, protuberant. EXTREMITIES: Show no cyanosis or edema. NEUROLOGIC: Function focally intact. Speech is fluent. Fire Boat Engineer intact. SKIN: Warm and dry. LABORATORY DATA: Hemoglobin was 11.6 g/dL, white count 8400. Electrolytes within normal range. Creatinine is down to 1.4 mg/dL. Lactate was normal. Cardiac enzymes negative. Transaminases are normal. CT of the chest as noted. ASSESSMENT: 1. A 70-year-old female with coronavirus pneumonia. 2. Acute on chronic respiratory failure. 3. Underlying chronic obstructive pulmonary disease. 4. Chronic kidney disease with improved creatinine. 5. Depression. 6. Type 2 diabetes. 7. Hypertension. 8. Hyperlipidemia. 9. Generalized anxiety disorder. PLAN: 1. Admit to the inpatient unit. 2. Supplemental oxygen. 3. I will institute corticosteroid therapy. 4. Monitor blood sugars. 5. Continue some home meds. 6. Diet as tolerated. 7. Supplemental oxygen will be applied and will be weaned down. 8. I will offer her nicotine patch if she wishes. MAYNOR DR: Mohinder TID: [id number] CC: MAJOR FAJARDO MD
[2021-01-03] MEDS: ASPIRIN CHEWABLE 81 MG TABLET. PO SCH (10:26)
[2021-01-03] MEDS: APIXABAN 5 MG TABLET. PO SCH ×2 (10:26→19:21)
[2021-01-03] MEDS: SERTRALINE 50 MG TABLET. PO SCH (10:27)
[2021-01-03] MEDS: ALLOPURINOL 100 MG TABLET. PO SCH (10:27)
[2021-01-03] MEDS: PANTOPRAZOLE 40 MG TABLET. PO SCH (10:27)
[2021-01-03] MEDS: methylPREDNISolone SOD SUCC PF 125 MG/2 ML VIAL. IV SCH (10:29)
[2021-01-03] MEDS: FERROUS SULFATE 325 MG TABLET. PO SCH (10:34)
[2021-01-03] MEDS: CLOPIDOGREL BISULFATE 75 MG TABLET PO SCH (10:34)
[2021-01-03 10:50] VITALS: BP 143/75
[2021-01-03 15:40] VITALS: BP 166/76
[2021-01-03] MEDS: INSULIN LISPRO 300 UNITS/3 ML VIAL. SQ SCH (17:00)
[2021-01-03] MEDS: METOPROLOL SUCC 24HR ER 50 MG TAB.ER.24H. PO SCH (17:17)
[2021-01-03] MEDS: LINAGLIPTIN 5 MG TABLET PO SCH (17:17)
[2021-01-03 18:56] VITALS: BP 153/81
[2021-01-03] MEDS: amLODIPine BESYLATE 10 MG TABLET PO SCH ×2 (19:21→21:00)
[2021-01-03] MEDS: ATORVASTATIN CALCIUM 20 MG TABLET PO SCH (19:22)
[2021-01-03] MEDS: HYDROcodone/CHLORPHEN POLIS 5 ML SUS.ER.12H PO PRN (19:22)
[2021-01-03] MEDS: CEPHALEXIN 250 MG CAPSULE PO SCH (19:26)
--- NOTE | 2021-01-03 19:33 | NUR ---
Pt has been very sleepy today as well as refusing to eat. pt educated on importance of nutrition. pt has had numerous family members calling numerous times throughout the shift.
[2021-01-03] MEDS: INSULIN GLARGINE SYRINGE. SQ SCH (21:36)
[2021-01-03 22:00] VITALS: BP 152/68
[2021-01-04 06:18] VITALS: BP 157/76
[2021-01-04 06:23] LABS: BASO % 0 % (0-3); EOS % 0 % (0-3); HEMATOCRIT 33.5 % (36.0-47.0); HEMOGLOBIN 10.9 g/dL (12.0-15.5); LYMPH # 0.7 x10^3/uL (1.0-4.8); LYMPH % 10 % (24-48); MEAN CORPUSCULAR HEMOGLOBIN 30 pg (25-35); MEAN CORPUSCULAR HGB CONC 33 g/dL (31-37); MEAN CORPUSCULAR VOLUME 93 fL (79-100); MONO # 0.9 x10^3/uL (0.0-1.1); MONO % 12 % (0-9); NEUT % 79 % (31-73); PLATELET COUNT 228 x10^3/uL (140-400); RED BLOOD COUNT 3.62 x10^6/uL (3.50-5.40); RED CELL DISTRIBUTION WIDTH 14.4 % (11.5-14.5); WHITE BLOOD COUNT 7.6 x10^3/uL (4.0-11.0)
[2021-01-04 06:27] LABS: CALCIUM 8.1 mg/dL (8.5-10.1); CREATININE 1.2 mg/dL (0.6-1.0); GFR 44.3; POTASSIUM 5.3 mmol/L (3.5-5.1)
[2021-01-04] MEDS ORDERED: LOSA100T14 PO (06:34)
[2021-01-04] MEDS: APIXABAN 5 MG TABLET. PO SCH ×2 (09:00→09:28)
[2021-01-04] MEDS: FERROUS SULFATE 325 MG TABLET. PO SCH ×2 (09:00→09:22)
[2021-01-04] MEDS: ASPIRIN CHEWABLE 81 MG TABLET. PO SCH (09:22)
[2021-01-04] MEDS: SERTRALINE 50 MG TABLET. PO SCH (09:22)
[2021-01-04] MEDS: LINAGLIPTIN 5 MG TABLET PO SCH (09:22)
[2021-01-04] MEDS: PANTOPRAZOLE 40 MG TABLET. PO SCH (09:22)
[2021-01-04] MEDS: VITAMIN E. 400 UNIT CAPSULE. PO SCH (09:22)
[2021-01-04] MEDS: CEPHALEXIN 250 MG CAPSULE PO SCH ×4 (09:22→20:58)
[2021-01-04] MEDS: CLOPIDOGREL BISULFATE 75 MG TABLET PO SCH (09:22)
[2021-01-04] MEDS: ALLOPURINOL 100 MG TABLET. PO SCH (09:22)
[2021-01-04] MEDS: LOSARTAN 50 MG TABLET. PO SCH (09:22)
[2021-01-04] MEDS: ALBUTEROL SULFATE 8GM INHALER. INH SCH ×4 (09:23→20:58)
[2021-01-04] MEDS: methylPREDNISolone SOD SUCC PF 125 MG/2 ML VIAL. IV SCH (09:23)
[2021-01-04] MEDS ORDERED: ONDANSETRON PF 4 MG/2 ML VIAL. IVP PRN (10:15)
[2021-01-04 11:35] VITALS: BP 164/74
[2021-01-04] MEDS: HYDROcodone/CHLORPHEN POLIS 5 ML SUS.ER.12H PO PRN ×2 (12:04→23:45)
--- NOTE | 2021-01-04 14:36 | PN ---
DATE: 01/04/2021 ATTENDING PHYSICIAN: Dr. Thomas. SUBJECTIVE: The patient is doing better. Appetite is fair. She still has a minimally productive cough. She denied any fevers, chills. Appetite has been poor. She is simply not hungry. OBJECTIVE FINDINGS: VITAL SIGNS: Blood pressure this morning is 157/76, pulse 73 and regular. She is afebrile. Oxygen saturation 93% on 2 liters by nasal cannula. HEENT: Head is without trauma. Pupils are reactive. Sclerae nonicteric. Oropharynx clear. NECK: Supple, no bruits. LUNGS: Good breath sounds. Minimal rhonchi in the lower bases. CARDIOVASCULAR: Regular heart tones. No gallop. ABDOMEN: Soft. EXTREMITIES: Without edema. NEUROLOGIC: Focally intact. SKIN: Warm and dry. LABORATORY DATA: Creatinine is now down to 1.2 mg/dL. Nonfasting blood sugar 154. Electrolytes within normal range. ASSESSMENT: A 70-year-old female with COVID pneumonia. 1. Acute on chronic respiratory failure. 2. Underlying chronic obstructive pulmonary disease. 3. Chronic kidney disease with improved creatinine down to 1.2 mg/dL. 4. Major depression. 5. Type 2 diabetes. 6. Hypertension. 7. Generalized anxiety disorder. PLAN: 1. Continue Solu-Medrol as ordered. 2. We shall wean down supplemental oxygen. 3. Encourage diet as tolerated. 4. Blood glucose monitoring. 5. Tentative discharge plans for tomorrow. QAMAR DR: Mohinder TID: [id number] CC: MAJOR FAJARDO MD
[2021-01-04 14:45] VITALS: BP 144/74
[2021-01-04] MEDS: METOPROLOL SUCC 24HR ER 50 MG TAB.ER.24H. PO SCH (17:42)
[2021-01-04] MEDS: INSULIN LISPRO 300 UNITS/3 ML VIAL. SQ SCH (17:43)
--- NOTE | 2021-01-04 18:28 | NUR ---
Nursing Note Patient has had uneventful shift, patient very irritable throughout shift. Very flat affect, this nurse tried for conversation when patient states "I'm fine", no other acute concerns with patient. Possible discharge tomorrow.
[2021-01-04] MEDS: ATORVASTATIN CALCIUM 20 MG TABLET PO SCH (20:58)
[2021-01-04] MEDS: LACTOBACILLUS RHAMNOSUS GG 1 CAPSULE. PO SCH (20:58)
[2021-01-04] MEDS: INSULIN GLARGINE SYRINGE. SQ SCH (21:00)
[2021-01-04 21:07] VITALS: BP 114/69
[2021-01-05 00:09] VITALS: BP 163/75
[2021-01-05] MEDS: LACTOBACILLUS RHAMNOSUS GG 1 CAPSULE. PO SCH ×2 (08:27→21:02)
[2021-01-05] MEDS: ALLOPURINOL 100 MG TABLET. PO SCH (08:27)
[2021-01-05] MEDS: VITAMIN E. 400 UNIT CAPSULE. PO SCH (08:27)
[2021-01-05] MEDS: CLOPIDOGREL BISULFATE 75 MG TABLET PO SCH (08:27)
[2021-01-05] MEDS: SERTRALINE 50 MG TABLET. PO SCH (08:27)
[2021-01-05] MEDS: LOSARTAN 50 MG TABLET. PO SCH (08:27)
[2021-01-05] MEDS: CEPHALEXIN 250 MG CAPSULE PO SCH ×4 (08:27→21:02)
[2021-01-05] MEDS: ASPIRIN CHEWABLE 81 MG TABLET. PO SCH (08:27)
[2021-01-05] MEDS: PANTOPRAZOLE 40 MG TABLET. PO SCH (08:28)
[2021-01-05] MEDS: ALBUTEROL SULFATE 8GM INHALER. INH SCH ×4 (08:28→21:04)
[2021-01-05] MEDS: methylPREDNISolone SOD SUCC PF 125 MG/2 ML VIAL. IV SCH (08:28)
[2021-01-05 10:08] VITALS: BP 160/78
--- NOTE | 2021-01-05 10:13 | NUR ---
Vitals Vital signs obtained per BROWN Sánchez Addendum: 01/05/21 at 1015 by SONIA NORIEGA RN Amended: Links added.
[2021-01-05 14:47] VITALS: BP 160/74
[2021-01-05] MEDS: METOPROLOL SUCC 24HR ER 50 MG TAB.ER.24H. PO SCH (17:31)
[2021-01-05] MEDS: INSULIN LISPRO 300 UNITS/3 ML VIAL. SQ SCH (17:32)
[2021-01-05] MEDS: LINAGLIPTIN 5 MG TABLET PO SCH (17:32)
[2021-01-05] MEDS ORDERED: ACETAMINOPHEN 500 MG TABLET PO PRN (18:15)
--- NOTE | 2021-01-05 18:51 | NUR ---
Nursing Note Patient has had uneventful shift, patient more talkative/interactive today. Patient states she is more tired today with no desire of moving around room. Patient to discharge home with tomorrow. Tyesha (pt sister) updated via telephone.
[2021-01-05 20:38] VITALS: BP 152/71
[2021-01-05] MEDS: HYDROcodone/CHLORPHEN POLIS 5 ML SUS.ER.12H PO PRN (21:02)
[2021-01-05] MEDS: ATORVASTATIN CALCIUM 20 MG TABLET PO SCH (21:02)
[2021-01-05] MEDS: INSULIN GLARGINE SYRINGE. SQ SCH (21:03)
--- NOTE | 2021-01-05 23:25 | PN ---
DATE: 01/05/2021 SUBJECTIVE: The patient is a 70-year-old female patient who was admitted with generalized weakness. She apparently was admitted initially on 12/30/2020 with symptoms of dehydration, did have tested positive for COVID. She did not have too much respiratory symptoms at that time. She got better the next day. She was sent home. Her creatinine at that time was concerned, she came in at 2.2. She went home with 1.9 and she was admitted again with 1.4. She had significant emphysema. She continues to smoke. Her CT of the chest showed no evidence of blood clots. There are significant emphysematous changes throughout the lung hernandez. There is some ground glass-appearing infiltrate at the bases consistent with a viral pneumonia. She requires 2 liters of supplemental oxygen. She was admitted with acute on chronic respiratory failure. When I saw her today, she was resting slightly propped up in bed, in no apparent respiratory distress. On questioning her, her main complaint was generalized weakness and also shortness of breath that is chronic. She continued to have some cough with scanty whitish sputum. PHYSICAL EXAMINATION: GENERAL: When I examined her, she was somewhat pale, but no jaundice, cyanosis or thyromegaly. No jugular venous distention. No limb edema. VITAL SIGNS: Her heart rate was 64, blood pressure is 160/74, temperature was 99.2, respiratory rate 20, and oxygen saturation was 94% on room air. HEAD, EYES, EARS, NOSE, EYES, EARS, NOSE, AND THROAT: Normocephalic, atraumatic. NECK: Supple. HEART: Showed normal first and second heart sounds, no gallop, rub or murmur. CHEST: Shows central trachea, equal bilateral chest expansion, air entry, vesicular breath sounds. Few scattered rhonchi, could not appreciate any crepitation. ABDOMEN: Distended, soft, nontender. NEUROLOGIC: She was grossly intact. Her intake over the last 24 hours was 1240, output was incompletely recorded. LABORATORY DATA: As of yesterday, her white cell count was 7600, hemoglobin 10.9, hematocrit 33.5, MCV 93, platelet count 226,000 with normal manual differential. Her blood sugar seems to be reasonably controlled. Her chemistry showed a serum sodium 138, potassium 5.3, chloride 107, bicarbonate 21, anion gap of 10, BUN 32, creatinine 1.2. Estimated GFR was 44 mL per minute. Her glucose 154 and calcium was 8.1. ASSESSMENT: 1. Acute on chronic hypoxic respiratory failure. 2. Chronic obstructive pulmonary disease. 3. Acute on chronic kidney disease. 4. Type 2 diabetes mellitus. 5. Hypertension. 6. Major depression. 7. Generalized weakness and easy fatigability. PLAN: To continue with IV Solu-Medrol. Continue with all her other medication. Continue to monitor blood sugar and adjust insulin as needed. We will do a 6-minute walk tomorrow and she can be discharged home on a tapering course of steroid. YOLIS DR: Cristina TID: [id number]
[2021-01-05 23:41] VITALS: BP 167/84
[2021-01-06 05:53] VITALS: BP 187/59
[2021-01-06] MEDS: CLOPIDOGREL BISULFATE 75 MG TABLET PO SCH (08:58)
[2021-01-06] MEDS: ALBUTEROL SULFATE 8GM INHALER. INH SCH ×2 (08:58→13:08)
[2021-01-06] MEDS: CEPHALEXIN 250 MG CAPSULE PO SCH ×2 (08:58→13:08)
[2021-01-06] MEDS: PANTOPRAZOLE 40 MG TABLET. PO SCH (08:58)
[2021-01-06] MEDS: ALLOPURINOL 100 MG TABLET. PO SCH (08:58)
[2021-01-06] MEDS: SERTRALINE 50 MG TABLET. PO SCH (08:58)
[2021-01-06] MEDS: LOSARTAN 50 MG TABLET. PO SCH (08:58)
[2021-01-06] MEDS: VITAMIN E. 400 UNIT CAPSULE. PO SCH (08:58)
[2021-01-06] MEDS: ASPIRIN CHEWABLE 81 MG TABLET. PO SCH (08:58)
[2021-01-06] MEDS: LACTOBACILLUS RHAMNOSUS GG 1 CAPSULE. PO SCH (08:58)
[2021-01-06] MEDS: methylPREDNISolone SOD SUCC PF 125 MG/2 ML VIAL. IV SCH (08:59)
[2021-01-06 11:09] VITALS: BP 139/75
--- NOTE | 2021-01-06 16:20 | NUR ---
NSG NOTE; DISCHARGE VERBAL AND WRITTEN DISCHARGE INSTRUCTIONS GIVEN TO THE PT WITH VERBAL UNDERSTANDING WRITTEN RX FOR PREDNISONE GIVEN TO PT DISCHARGED TO HOME AT 1547 VIA W/C ACCOMP BY
--- NOTE | 2021-01-06 23:02 | DS ---
DATE OF DISCHARGE: 01/06/2021 HOSPITAL COURSE: The patient is a 70-year-old female patient who was admitted with acute on chronic hypoxic respiratory failure. She tested positive for COVID; however, she did not have too much respiratory symptoms at that time. She got better and was sent home. Her creatinine at that time was concerning and was up to 2.2, she went home with 1.9 and she was admitted again to 1.4. She has significant lymphedema. We did start her on steroids and did actually very well. Her CT scan of the chest showed no evidence of blood clots; however, she has significant emphysematous changes throughout the lung hernandez, some ground glass appearing infiltrate at the base consistent with viral pneumonia. Initially, she was requiring 2 liters of supplemental oxygen. However, when I saw her today, she was resting slightly propped up in bed, in no apparent respiratory distress. PHYSICAL EXAMINATION: GENERAL: When I examined her, she was pale. No jaundice, cyanosis or thyromegaly. No jugular venous distention. No limb edema. VITAL SIGNS: Her heart rate was 63, blood pressure is 139/75, temperature was 97.8, respiratory rate was 16 and oxygen saturation was 93% on room air. HEAD, EYES, EARS, NOSE, AND THROAT: Normocephalic, atraumatic. NECK: Supple. HEART: Showed normal first and second heart sounds. No gallop, rub or murmur. CHEST: Clear to auscultation and equal bilateral expansion, air entry ____. Very few scattered rhonchi, could not appreciate any crepitation. ABDOMEN: Soft, distended, nontender. NEUROLOGIC: She was grossly intact. Her intake was 760. No output was recorded. LABORATORY DATA: Showed a hemoglobin of 11, hematocrit 33 with normal white cell count and platelets. Her blood sugars seem to be reasonably controlled and her BUN is down to 32 and creatinine 1.2. DISCHARGE MEDICATIONS: The patient was discharged home to continue on allopurinol 100 mg once a day, aspirin 81 mg once a day, cephalexin 500 mg 4 times a day for 4 more days, Plavix 75 mg once a day, ferrous sulfate 325 mg daily. She is on Lantus insulin 35 units at bedtime and Humalog insulin 10 units subQ before supper. She is on linagliptin 5 mg daily, losartan, potassium 100 mg once a day, metoprolol succinate 100 mg once a day, Protonix 40 mg once a day, Crestor 40 mg at bedtime, sertraline 50 mg daily, vitamin E 400 units daily. She is also on a tapering course of steroids. FINAL DISCHARGE DIAGNOSES: The patient was discharged with diagnoses of: 1. Coronavirus pneumonia. 2. Acute on chronic hypoxic respiratory failure that has resolved. 3. Chronic obstructive pulmonary disease. 4. Acute on chronic kidney disease. Creatinine came down from 2.2 to 1.2. 5. Depression. 6. Type 2 diabetes mellitus. 7. Hypertension. 8. Hyperlipidemia. HEMANT/JENNIFER DR: Cristina TID: [id number]
== END 2021-01-06 15:47 | disposition home or self-care (01) | DRG 177 ==
LOC: ER 23:13 → 1 SOUTH 01-03 05:39
PROVIDERS: ADMIT Hospitalist; ATTEND Hospitalist
DX: U07.1 COVID-19 (principal); J12.82 Pneumonia due to coronavirus disease 2019; J96.21 Acute and chronic respiratory failure with hypoxia; D64.9 Anemia, unspecified; E11.22 Type 2 diabetes mellitus with diabetic chronic kidney disease; E66.01 Morbid (severe) obesity due to excess calories; E78.00 Pure hypercholesterolemia, unspecified; E78.5 Hyperlipidemia, unspecified; E86.0 Dehydration; F17.200 Nicotine dependence, unspecified, uncomplicated; F32.9 Major depressive disorder, single episode, unspecified; F41.1 Generalized anxiety disorder; I12.9 Hypertensive chronic kidney disease with stage 1 through stage 4 chronic kidney disease, or unspecified chronic kidney disease; I25.10 Atherosclerotic heart disease of native coronary artery without angina pectoris; J43.9 Emphysema, unspecified; N18.9 Chronic kidney disease, unspecified; F41.9 Anxiety disorder, unspecified; R79.89 Other specified abnormal findings of blood chemistry; R79.82 Elevated C-reactive protein (CRP); Z86.718 Personal history of other venous thrombosis and embolism; Z79.01 Long term (current) use of anticoagulants; Z79.4 Long term (current) use of insulin; Z85.3 Personal history of malignant neoplasm of breast; Z90.10 Acquired absence of unspecified breast and nipple
CPT/HCPCS: 36415; 71045; 71275; 74177; 80048; 80076; 82550; 82947; 83605; 83690; 83735; 83880; 84443; 84484; 85025; 85379; 85610; 86140; 87040; 93005; 94618; 94640; 96361; 96374; 99406; G0378; J1815; J2920; J2930; J7120; Q9966; Q9967; 94664; 99285-25

== ENCOUNTER 2021-01-12 09:56 | Emergency (ER) | payer MEDICARE, OTHER ==
[~2021-01-12] VITALS: Ht 162.6 cm; Wt 85.7 kg
[~2021-01-12 09:56] MED LIST changes: +CEPH500C PO
[2021-01-12] MEDS ORDERED: ONDANSETRON PF 4 MG/2 ML VIAL. IVP ONE (10:30)
--- NOTE | 2021-01-12 10:32 | PHYS DOC ---
Past History Past Medical History: Anxiety, COPD, Depression, Diabetes, DVT, High Cholesterol, Hypertension Additional Past Medical Histor: covid-19 12-26-20 or the end of November (PELON DUPONT APRN) Past Surgical History: Other Additional Past Surgical Histo: LYMP[H NODE REMOVAL R-BREAST (PELON DUPONT APRN) Smoking: Non-smoker Alcohol Use: Occasionally Drug Use: None (PELON DUPONT APRN) General Adult EDM: Chief Complaint: GROIN PAIN HPI: HPI: Patient is a 70-year-old female who presents to the ER for left lower quadrant/left groin pain that started 1 week ago. Patient describes the pain as a constant sharp/burning pain. Pain is worse with movement. She states she believes she pulled a muscle but is unsure of how she would have done that. She rates it 8 out of 10. She took Tylenol 3:00 this morning. She denies any heavy lifting or injury. She also denies nausea, vomiting, diarrhea, dysuria, hematuria, constipation. Patient was recently discharged within 2 weeks, this hospital for you were seen for Covid-19 complications. Patient has an extensive medical history including COPD, gout, breast cancer, diabetes, hypertension, GERD, hyperlipidemia. Upon ER arrival patient's vital signs are stable. (PELON DUPONT APRN) Review of Systems: Review of Systems: 14 body systems of the review of systems have been reviewed. See HPI for pertinent positive and negative responses, otherwise all other systems are negative, nonpertinent or noncontributory (PELON DUPONT APRN) Allergies: Allergies: Allergies Coded Allergies Type Severity Reaction Last Updated Verified cefepime Adverse Reaction Intermediate Severe Nausea and Vomiting 01/03/21 Yes (PELON DUPONT APRN) Physical Exam: PE: Constitutional: Well developed, well nourished, no acute distress, non-toxic appearance. [] HENT: Normocephalic, atraumatic Eyes: PERRL, EOMI, conjunctiva normal, no discharge. [] Neck: Normal range of motion, no tenderness, supple, no stridor. [] Cardiovascular:Heart rate regular rhythm, no murmur [] Lungs & Thorax: Bilateral breath sounds clear to auscultation [] Abdomen: Bowel sounds normal, soft, no masses, no pulsatile masses, periumbilical bruising, pain with palpation to left groin. [] Skin: Warm, dry, no erythema, no rash. [] Back: No tenderness, no CVA tenderness. [] Extremities: No tenderness, no cyanosis, no clubbing, ROM intact, no edema. [] Neurologic: Alert and oriented X 3, normal motor function, normal sensory function, no focal deficits noted. [] Psychologic: Affect normal, judgement normal, mood normal. [] (PELON DUPONT APRN) Current Patient Data: Labs: Laboratory Tests Test 01/12/21 10:30 01/12/21 11:35 White Blood Count 22.4 x10^3/uL Red Blood Count 3.88 x10^6/uL Hemoglobin 11.8 g/dL Hematocrit 35.7 % Mean Corpuscular Volume 92 fL Mean Corpuscular Hemoglobin 30 pg Mean Corpuscular Hemoglobin Concent 33 g/dL Red Cell Distribution Width 14.7 % Platelet Count 286 x10^3/uL Neutrophils (%) (Auto) 89 % Lymphocytes (%) (Auto) 6 % Monocytes (%) (Auto) 4 % Eosinophils (%) (Auto) 0 % Basophils (%) (Auto) 0 % Neutrophils # (Auto) 19.9 x10^3uL Lymphocytes # (Auto) 1.4 x10^3/uL Monocytes # (Auto) 0.9 x10^3/uL Eosinophils # (Auto) 0.1 x10^3/uL Basophils # (Auto) 0.0 x10^3/uL Platelet Estimate Pending Sodium Level 141 mmol/L Potassium Level 5.0 mmol/L Chloride Level 109 mmol/L Carbon Dioxide Level 22 mmol/L Anion Gap 10 Blood Urea Nitrogen 37 mg/dL Creatinine 1.2 mg/dL Estimated GFR (Cockcroft-Gault) 44.3 BUN/Creatinine Ratio 31 Glucose Level 162 mg/dL Calcium Level 8.9 mg/dL Total Bilirubin 0.4 mg/dL Aspartate Amino Transf (AST/SGOT) 54 U/L Alanine Aminotransferase (ALT/SGPT) 78 U/L Alkaline Phosphatase 47 U/L Total Protein 6.5 g/dL Albumin 2.7 g/dL Albumin/Globulin Ratio 0.7 Lipase 140 U/L Urine Collection Type Unknown Urine Color Yellow Urine Clarity Clear Urine pH 5.5 Urine Specific [place] 1.020 Urine Protein 30 mg/dl Urine Glucose (UA) Neg mg/dL Urine Ketones (Stick) Neg mg/dL Urine Blood Neg Urine Nitrite Neg Urine Bilirubin Neg Urine Urobilinogen Dipstick 0.2 mg/dL Urine Leukocyte Esterase Trace Urine RBC 1-2 /HPF Urine WBC 5-10 /HPF Urine Squamous Epithelial Cells Mod /LPF Urine Transitional Epithelial Cells Occ /LPF Urine Bacteria Few /HPF Current Medications Medications (Trade) Dose Ordered Sig/Parvin Route PRN Reason Start Time Stop Time Status Last Admin Dose Admin Ondansetron HCl (Zofran) 4 mg 1X ONCE IVP 01/12/21 10:30 01/12/21 10:31 DC 01/12/21 10:46 Fentanyl Citrate (Fentanyl 2ml Vial) 50 mcg 1X ONCE IVP 01/12/21 10:30 01/12/21 10:31 DC 01/12/21 10:48 Nitrofurantoin Macrocrystals (Macrobid) 100 mg 1X ONCE PO 01/12/21 12:45 01/12/21 12:46 UNV Vital Signs: Vital Signs Date Time Temp Pulse Resp B/P (MAP) Pulse Ox O2 Delivery O2 Flow Rate FiO2 01/12/21 10:10 98.4 63 24 179/70 97 Room Air (PELON DUPONT APRN) EKG: EKG: [] (PELON DUPONT APRN) Radiology/Procedures: Radiology/Procedures: PROCEDURE: CT ABDOMEN PELVIS WO CONTRAST CT ABDOMEN+PELVIS WO History: Left lower quadrant pain. Periumbilical bruising. Comparison: CT abdomen and pelvis 08/03/2013. Technique: Noncontrast CT of the abdomen and pelvis. Findings: Mild subpleural reticulation at the lingula and right middle lobe. No significant airspace consolidation. Heavy aortic annular calcification and coronary artery calcification. The liver, gallbladder, spleen and adrenal glands are unremarkable. There is fatty atrophy of the pancreas. Multiple bilateral simple renal cysts and additionally multiple bilateral intermediate density exophytic cystic lesions of the kidneys which are incompletely evaluated on single phase exam, for example 1.1 cm diameter exophytic mass anterior right kidney measuring 37 Hounsfield units and 1.4 cm medial upper pole left kidney exophytic circumscribed mass measuring 55 Hounsfield units. The bladder and uterus are unremarkable. Stomach and small bowel are within normal limits. Normal appendix. Minimal sigmoid diverticulosis without pericolonic inflammatory changes. Heavy aortic atherosclerotic calcification without aneurysm. No abdominal pelvic adenopathy. No intra-abdominal free air or free fluid. Within the lower left rectus abdominis sheath there is a hyperdense fluid collection expanding the rectus measuring approximately 4.8 x 3.4 x 5.1 cm with surrounding subcutaneous edema. Tiny fat-containing umbilical hernia. Multilevel degenerative changes of the lower lumbar spine with disc space narrowing greatest at L5-S1. Impression: 1. Left lower rectus sheath hyperdense collection consistent with hematoma measuring approximately 4.5 x 3.4 x 5.1 cm. 2. Multiple bilateral renal cysts as well as multiple bilateral indeterminate renal masses which most likely represent cyst with hemorrhagic or proteinaceous content. Recommend dedicated renal protocol MRI for complete evaluation. ------ Exposure: One or more of the following individualized dose reduction techniques were utilized for this examination: 1. Automated exposure control 2. Adjustment of the mA and/or kV according to patient size 3. Use of iterative reconstruction technique. Electronically signed by: Forest Waller MD (01/12/2021 11:14 AM) [id number] DICTATED AND SIGNED BY: FOREST WALLER MD DATE: 01/12/21 1059 CC: MAJOR FAJARDO MD; PELON DUPONT APRN ~MTH0 0 [] (PELON DUPONT APRN) Heart Score: C/O Chest Pain: No Risk Factors: Risk Factors: DM, Current or recent (<one month) smoker, HTN, HLP, family history of CAD, obesity. Risk Scores: Score 0 - 3: 2.5% MACE over next 6 weeks - Discharge Home Score 4 - 6: 20.3% MACE over next 6 weeks - Admit for Clinical Observation Score 7 - 10: 72.7% MACE over next 6 weeks - Early Invasive Strategies (PELON UDPONT APRN) Course & Med Decision Making: Course & Med Decision Making Pertinent Labs and Imaging studies reviewed. (See chart for details) Patient is a 70-year-old female being seen in the ER for left lower quadrant/left groin pain that started 1 week ago that is worse with movement. Patient denies any GI/ complaints. She was noted to have bruising around her umbilicus, patient is on Plavix. She also injects insulin in her abdomen denies injecting in that region. Work-up in the ER consisted of blood work, UA, and CT scan of abdomen. Due to patient's GFR a noncontrast CT was performed. Patient was treated in the ER with pain medication and nausea medication. CT scan of abdomen showed a hematoma no other acute findings. Patient was noted to have leukocytosis. Her renal function and liver enzymes are consistent with her previous visit. The urinalysis showed a UTI. Patient was treated with a dose of antibiotic in the ER and discharged home with a prescription. Patient was advised to follow-up with her primary care provider as soon as possible regarding her visit. I discussed patients case with supervising physician. I discussed with patient all findings and diagnostic testing as well as the need to follow-up with PCP for further evaluation and treatment or return to the ER if any new or worsening symptoms. Strict return precautions were also discussed at length. Patient voiced understanding and agreement with the plan. Patient is hemodynamically stable at the time of disposition. (PELON DUPONT APRN) Dragon Disclaimer: Dragon Disclaimer: This electronic medical record was generated, in whole or in part, using a voice recognition dictation system. (PELON DUPONT APRN) Departure Departure: Impression: Primary Impression: UTI (urinary tract infection) Qualified Codes: N30.00 - Acute cystitis without hematuria Additional Impressions: Groin pain Qualified Codes: R10.32 - Left lower quadrant pain Abdominal wall hematoma Qualified Codes: S30.1XXA - Contusion of abdominal wall, initial encounter Leukocytosis Qualified Codes: D72.829 - Elevated white blood cell count, unspecified Disposition: HOME / SELF CARE / HOMELESS Condition: GOOD Referrals: MAJOR FAJADRO MD (PCP) Patient Instructions: Groin Strain, Urinary Tract Infection Additional Instructions: You were seen in the ER for left groin pain. Work-up in the ER consisted of blood work, urinalysis, and CT scan of your abdomen. You were noted to have a urinary tract infection based off the urinalysis. The CT scan of your abdomen showed a hematoma with no other acute findings. It is likely that you have strained your groin or this is pain due to the hematoma in your abdomen. For your urinary tract infection you were treated with an antibiotic in the ER and discharged home with a prescription. Please make sure that you start and finish his antibiotic completely. Need to follow-up with your primary care provider tomorrow regarding your ER visit today. Continue to take Tylenol at home for your pain. Application of heat/ice may improve your groin pain also. If you develop worsening of your pain, intractable nausea or vomiting, fevers refractory to treatment, chest pain, shortness of breath, blood in your stools or vomit, pain with urination please return to the ER immediately. EMERGENCY DEPARTMENT GENERAL DISCHARGE INSTRUCTIONS Thank you for coming to [facility] (ED) today and trusting us with you care. We trust that you had a positivie experience in our Emergency Department. If you wish to speak to the department management, you may call the director at [phone]. YOUR FOLLOW UP INSTRUCTIONS ARE FOLLOWS: 1. Do you have a private Doctor? If you do not have a private doctor, please ask for a resource list of physicians or clinics that may be able to assist you with follow up care. 2. The Emergency Physician has interpreted your x-rays. The X-Ray specialist will also review them. If there is a change in the findings, you will be notified in 48 hours when at all possible. 3. A lab test or culture has been done, your results will be reviewed and you will be notified if you need a change in treatment. ADDITIONAL INSTRUCTIONS AND INFORMATION: 1. Your care today has been supervised by a physician who is specially trained in emergency care. Many problems require more than one evaluation for a complete diagnosis and treatment. We recommend that you schedule your follow up appointment as recommended to ensure complete treatment of you illness or injury. If you are unable to obtain follow up care and continue to have a problem, or if your condition worsens, we recommend that you return to the ED. 2. We are not able to safely determine your condition over the phone nor are we able to give sound medical advice over the phone. For these safety reasons, if you call for medical advice we will ask you to come to the ED for further evaluation. 3. If you have any questions regarding these discharge instructions please call the ED at [phone]. SAFETY INFORMATION: In the interest of safety, wellness, and injury prevention; we encourage you to wear your sealbelt, if you smoke; quite smoking, and we encourage family to use a protective helmet for bicycling and other sporting events that present an increased risk for head injury. IF YOUR SYMPTOMS WORSEN OR NEW SYMPTOMS DEVELOP, OR YOU HAVE CONCERNS ABOUT YOUR CONDITION; OR IF YOUR CONDITION WORSENS WHILE YOU ARE WAITING FOR YOUR FOLLOW UP APPOINTMENT; EITHER CONTACT YOUR PRIMARY CARE DOCTOR, THE PHYSICIAN WHOSE NAME AND NUMBER YOU WERE GIVEN, OR RETURN TO THE ED IMMEDIATELY. Scripts Nitrofurantoin Monohyd/M-Cryst (MACROBID 100 MG CAPSULE) 100 Mg Capsule 100 CAP PO BID for UTI for 5 Days, #9 CAP 0 Refills Prov: PELON DUPONT APRN 01/12/21 Attending Signature Attending Signature I have reviewed the PA/ASSISTANT TECHNICIAN's note and plan of care. I was available for consultation as needed during the patient's visit in the emergency department. I agree with the clinical impression, plan, and disposition. (SERAFIN MCDOWELL DO) PELON DUPONT APRN Jan 12, 2021 10:32 SERAFIN MCDOWELL DO Jan 12, 2021 20:32
[2021-01-12 10:50] VITALS: BP 161/107
[2021-01-12 10:52] LABS: BASO % 0 % (0-3); EOS # 0.1 x10^3/uL (0.0-0.7); EOS % 0 % (0-3); HEMATOCRIT 35.7 % (36.0-47.0); HEMOGLOBIN 11.8 g/dL (12.0-15.5); LYMPH # 1.4 x10^3/uL (1.0-4.8); LYMPH % 6 % (24-48); MEAN CORPUSCULAR HEMOGLOBIN 30 pg (25-35); MEAN CORPUSCULAR HGB CONC 33 g/dL (31-37); MEAN CORPUSCULAR VOLUME 92 fL (79-100); MONO # 0.9 x10^3/uL (0.0-1.1); MONO % 4 % (0-9); NEUT # 19.9 x10^3uL (1.8-7.7); NEUT % 89 % (31-73); PLATELET COUNT 286 x10^3/uL (140-400); RED BLOOD COUNT 3.88 x10^6/uL (3.50-5.40); RED CELL DISTRIBUTION WIDTH 14.7 % (11.5-14.5); WHITE BLOOD COUNT 22.4 x10^3/uL (4.0-11.0)
[2021-01-12 11:02] LABS: CALCIUM 8.9 mg/dL (8.5-10.1); CREATININE 1.2 mg/dL (0.6-1.0); GFR 44.3
[2021-01-12 11:08] LABS: ALBUMIN 2.7 g/dL (3.4-5.0); ALBUMIN/GLOBULIN RATIO 0.7 (1.0-1.7); TOTAL BILIRUBIN 0.4 mg/dL (0.2-1.0); TOTAL PROTEIN 6.5 g/dL (6.4-8.2)
--- NOTE | 2021-01-12 11:17 | RAD ---
CT ABDOMEN+PELVIS WO History: Left lower quadrant pain. Periumbilical bruising. Comparison: CT abdomen and pelvis 08/03/2013. Technique: Noncontrast CT of the abdomen and pelvis. Findings: Mild subpleural reticulation at the lingula and right middle lobe. No significant airspace consolidat ion. Heavy aortic annular calcification and coronary artery calcification. The liver, gallbladder, spleen and adrenal glands are unremarkable. There is fatty atrophy of the orellana creas. Multiple bilateral simple renal cysts and additionally multiple bilateral intermediate density exophytic cystic lesions of the kidneys which are incompletely evaluated on single phase exam, for e xample 1.1 cm diameter exophytic mass anterior right kidney measuring 37 Hounsfield units and 1.4 cm medial upper pole left kidney exophytic circumscribed mass measuring 55 Hounsfield units. The bladder and uterus are unremarkable. Stomach and small bowel are within normal limits. Normal appendix. Minimal sigmoid diverticulosis wit hout pericolonic inflammatory changes. Heavy aortic atherosclerotic calcification without aneurysm. N o abdominal pelvic adenopathy. No intra-abdominal free air or free fluid. Within the lower left rectus abdominis sheath there is a hyperdense fluid collection expanding the re ctus measuring approximately 4.8 x 3.4 x 5.1 cm with surrounding subcutaneous edema. Tiny fat-contain ing umbilical hernia. Multilevel degenerative changes of the lower lumbar spine with disc space narro wing greatest at L5-S1. Impression: 1. Left lower rectus sheath hyperdense collection consistent with hematoma measuring approximately 4 .5 x 3.4 x 5.1 cm. 2. Multiple bilateral renal cysts as well as multiple bilateral indeterminate renal masses which mos t likely represent cyst with hemorrhagic or proteinaceous content. Recommend dedicated renal protocol MRI for complete evaluation. ------ Exposure: One or more of the following individualized dose reduction techniques were utilized for thi s examination: 1. Automated exposure control 2. Adjustment of the mA and/or kV according to patient size 3. Use of iterative reconstruction technique. Electronically signed by: Forest Lugo MD (01/12/2021 11:14 AM) [id number]
[2021-01-12 12:08] LABS: BILIRUBIN,URINE NEG (NEG); CLARITY,URINE CLEAR; COLOR,URINE YELLOW; GLUCOSE,URINE NEG (NEG); NITRITE,URINE NEG (NEG); UROBILINOGEN,URINE 0.2 mg/dL (0.2 mg/dL)
[2021-01-12 12:09] LABS: BACTERIA,URINE FEW /HPF (0-FEW); SQUAMOUS EPITHELIAL CELL,UR MOD /LPF
[2021-01-12] MEDS ORDERED: NITROFURANTOIN MONOHYD/M-CRYST 100 MG CAPSULE. PO ONE (12:45)
[2021-01-12] MEDS ORDERED: NITR100C62 PO ×2 (12:52→13:12)
[2021-01-12 13:36] LABS: % BANDS 4 % (0-9); % LYMPHS 9 % (24-48); % MONOS 1 % (0-10); % SEGS 86 % (35-66)
[2021-01-12 13:37] LABS: TOXIC GRANULATION PRESENT
[2021-01-12 13:38] LABS: PLT ESTIMATE ADEQUATE (ADEQUATE)
== END 2021-01-12 13:10 | disposition home or self-care (01) ==
LOC: ER 09:56
DX: S30.1XXA Contusion of abdominal wall, initial encounter (principal); N30.00 Acute cystitis without hematuria; D72.829 Elevated white blood cell count, unspecified; Z88.1 Allergy status to other antibiotic agents; J44.9 Chronic obstructive pulmonary disease, unspecified; E11.9 Type 2 diabetes mellitus without complications; E78.00 Pure hypercholesterolemia, unspecified; I10 Essential (primary) hypertension; Z86.718 Personal history of other venous thrombosis and embolism; X50.9XXA Other and unspecified overexertion or strenuous movements or postures, initial encounter; Y93.89 Activity, other specified; Y92.89 Other specified places as the place of occurrence of the external cause; Y99.8 Other external cause status
CPT/HCPCS: 36415; 74176; 80053; 81001; 83690; 85007; 85025; 87086; 96374; 96375; 99284; J2405; J3010

== ENCOUNTER 2021-05-13 13:35 | Emergency (ER) | payer MEDICARE, OTHER ==
[~2021-05-13] VITALS: Ht 162.6 cm; Wt 85.7 kg
[~2021-05-13 13:35] MED LIST changes: +CLIN-95 PO; -CLIN300C9 PO; +NITR100C62 PO
--- NOTE | 2021-05-13 14:03 | RAD ---
Site ID: [id number] EXAMINATION: XR ELBOW COMPLETE_LEFT 3+VIEWS. HISTORY: 70 years Female Reason: pain, swelling COMPARISON: None. FINDINGS: No fracture, dislocation or radiopaque foreign body. The joint spaces and articular surfaces appea r unremarkable. IMPRESSION: Unremarkable exam. Electronically signed by: Saul Lauren MD (05/13/2021 2:01 PM) [id number]
[2021-05-13 14:14] VITALS: BP 142/70
--- NOTE | 2021-05-13 14:14 | PHYS DOC ---
Past History Past Medical History: Anxiety, COPD, Depression, Diabetes, DVT, High Cholesterol, Hypertension Additional Past Medical Histor: covid-19 12-26-20 or the end of November (FABI CONDON APRN) Past Surgical History: Other Additional Past Surgical Histo: LYMP[H NODE REMOVAL R-BREAST (FABI CONDON APRN) Smoking: Non-smoker Alcohol Use: None Drug Use: None (FABI CONDON APRN) General Adult EDM: Chief Complaint: ELBOW PROBLEM HPI: HPI: Patient is a 70-year-old female presents with left elbow bruising. Patient recently had a CT and reports hitting her arm on the CT table. Patient reports bruising since she hit her arm. Patient also is currently on blood thinners. Bruising and tenderness to left forearm. Sensation and range of motion intact. Radial pulses intact. History of anxiety, depression, hypertension, diabetes. (FABI CONDON APRN) Review of Systems: Review of Systems: ROS At least 10 ROS systems have been reviewed and are negative except as documented in the HPI. General: Negative except as outlined in HPI above. Skin: Negative except as outlined in HPI above. HEENT: Negative except as outlined in HPI above. Neck: Negative except as outlined in HPI above. Respiratory: Negative except as outlined in HPI above.. Cardiovascular: Negative except as outlined in HPI above. Abdomen: Negative except as outlined in HPI above. : Negative except as outlined in HPI above. Back/MSK: Negative except as outlined in HPI above. Neuro: Negative except as outlined in HPI above. Psych: Negative except as outlined in HPI above. (FABI CONDON APRN) Allergies: Allergies: Allergies Coded Allergies Type Severity Reaction Last Updated Verified cefepime Adverse Reaction Intermediate Severe Nausea and Vomiting 01/03/21 Yes (FABI CONDON APRN) Physical Exam: PE: Constitutional: Well developed, well nourished, no acute distress, non-toxic appearance. [] HENT: Normocephalic, atraumatic, bilateral external ears normal, oropharynx mois t, no oral exudates, nose normal. [] Eyes: PERRLA, EOMI, conjunctiva normal, no discharge. [] Neck: Normal range of motion, no tenderness, supple, no stridor. [] Cardiovascular:Heart rate regular rhythm, no murmur [] Lungs & Thorax: Bilateral breath sounds clear to auscultation [] Abdomen: Bowel sounds normal, soft, no tenderness, no masses, no pulsatile masses. [] Skin: Left forearm bruising Back: No tenderness, no CVA tenderness. [] Extremities: No tenderness, no cyanosis, no clubbing, ROM intact, no edema. [] Neurologic: Alert and oriented X 3, normal motor function, normal sensory function, no focal deficits noted. [] Psychologic: Affect normal, judgement normal, mood normal. [] (FABI CONDON APRN) EKG: EKG: [] (FABI CONDON APRN) Radiology/Procedures: Radiology/Procedures: []Site ID: [id number] EXAMINATION: XR ELBOW COMPLETE_LEFT 3+VIEWS. HISTORY: 70 years Female Reason: pain, swelling COMPARISON: None. FINDINGS: No fracture, dislocation or radiopaque foreign body. The joint spaces and articular surfaces appear unremarkable. IMPRESSION: Unremarkable exam. Electronically signed by: Saul Lauren MD (05/13/2021 2:01 PM) [id number] (FABI CONDON APRN) Heart Score: C/O Chest Pain: No Risk Factors: Risk Factors: DM, Current or recent (<one month) smoker, HTN, HLP, family history of CAD, obesity. Risk Scores: Score 0 - 3: 2.5% MACE over next 6 weeks - Discharge Home Score 4 - 6: 20.3% MACE over next 6 weeks - Admit for Clinical Observation Score 7 - 10: 72.7% MACE over next 6 weeks - Early Invasive Strategies (FABI CONDON APRN) Course & Med Decision Making: Course & Med Decision Making Pertinent Labs and Imaging studies reviewed. (See chart for details) [] 69-year-old female presents with left elbow bruising after hitting her arm on a table while getting a CT. X-ray of left elbow ordered was unremarkable. Discussed results with patient. Advised patient if pain or bruising gets worse to follow-up with her PCP. No signs of infection. Patient has sensation and range of motion intact. Radial pulses are intact. Patient states she will follow up with her PCP. (FABI CONDON APRN) Dragon Disclaimer: Dragon Disclaimer: This electronic medical record was generated, in whole or in part, using a voice recognition dictation system. (FABI CONDON APRN) Attending Co-Sign The patient was seen and interviewed as well as examined at the bedside. The chart was reviewed. The case was discussed. Agree with the plan of care. (BETHANY BRANCH DO) Departure Departure: Impression: Primary Impression: Arm bruise Qualified Codes: S40.022A - Contusion of left upper arm, initial encounter Disposition: HOME / SELF CARE / HOMELESS Condition: STABLE Referrals: MAJOR FAJARDO MD (PCP) Patient Instructions: Elbow Contusion Additional Instructions: EMERGENCY DEPARTMENT GENERAL DISCHARGE INSTRUCTIONS Thank you for coming to [facility] (ED) today and trusting us with you care. We trust that you had a positivie experience in our Emergency Department. If you wish to speak to the department management, you may call the director at [phone]. YOUR FOLLOW UP INSTRUCTIONS ARE FOLLOWS: 1. Do you have a private Doctor? If you do not have a private doctor, please ask for a resource list of physicians or clinics that may be able to assist you with follow up care. 2. The Emergency Physician has interpreted your x-rays. The X-Ray specialist will also review them. If there is a change in the findings, you will be notified in 48 hours when at all possible. 3. A lab test or culture has been done, your results will be reviewed and you will be notified if you need a change in treatment. ADDITIONAL INSTRUCTIONS AND INFORMATION: 1. Your care today has been supervised by a physician who is specially trained in emergency care. Many problems require more than one evaluation for a complete diagnosis and treatment. We recommend that you schedule your follow up appointment as recommended to ensure complete treatment of you illness or injury. If you are unable to obtain follow up care and continue to have a problem, or if your condition worsens, we recommend that you return to the ED. 2. We are not able to safely determine your condition over the phone nor are we able to give sound medical advice over the phone. For these safety reasons, if you call for medical advice we will ask you to come to the ED for further evaluation. 3. If you have any questions regarding these discharge instructions please call the ED at [phone]. SAFETY INFORMATION: In the interest of safety, wellness, and injury prevention; we encourage you to wear your sealbelt, if you smoke; quite smoking, and we encourage family to use a protective helmet for bicycling and other sporting events that present an increased risk for head injury. IF YOUR SYMPTOMS WORSEN OR NEW SYMPTOMS DEVELOP, OR YOU HAVE CONCERNS ABOUT YOUR CONDITION; OR IF YOUR CONDITION WORSENS WHILE YOU ARE WAITING FOR YOUR FOLLOW UP APPOINTMENT; EITHER CONTACT YOUR PRIMARY CARE DOCTOR, THE PHYSICIAN WHOSE NAME AND NUMBER YOU WERE GIVEN, OR RETURN TO THE ED IMMEDIATELY. FABI CONDON APRN May 13, 2021 14:14 BETHANY BRANCH DO May 14, 2021 11:44
== END 2021-05-13 15:14 | disposition home or self-care (01) ==
LOC: ER 13:35
DX: S50.12XA Contusion of left forearm, initial encounter (principal); F41.9 Anxiety disorder, unspecified; J44.9 Chronic obstructive pulmonary disease, unspecified; E11.9 Type 2 diabetes mellitus without complications; E78.00 Pure hypercholesterolemia, unspecified; I10 Essential (primary) hypertension; Z86.718 Personal history of other venous thrombosis and embolism; Z88.1 Allergy status to other antibiotic agents; X58.XXXA Exposure to other specified factors, initial encounter; Y93.89 Activity, other specified; Y92.89 Other specified places as the place of occurrence of the external cause; Y99.8 Other external cause status
CPT/HCPCS: 73080; 99283

== ENCOUNTER → 2021-10-10 | Outpatient (CLI) | payer MEDICARE, OTHER ==
[2021-10-10 16:17] LABS: BASO # 0.1 x10^3/uL (0.0-0.2); BASO % 1 % (0-3); EOS # 0.2 x10^3/uL (0.0-0.7); EOS % 2 % (0-3); HEMATOCRIT 36.5 % (36.0-47.0); LYMPH # 2.3 x10^3/uL (1.0-4.8); LYMPH % 26 % (24-48); MEAN CORPUSCULAR HEMOGLOBIN 31 pg (25-35); MEAN CORPUSCULAR HGB CONC 33 g/dL (31-37); MEAN CORPUSCULAR VOLUME 93 fL (79-100); MONO # 0.8 x10^3/uL (0.0-1.1); MONO % 9 % (0-9); NEUT # 5.5 x10^3uL (1.8-7.7); NEUT % 63 % (31-73); PLATELET COUNT 194 x10^3/uL (140-400); RED BLOOD COUNT 3.91 x10^6/uL (3.50-5.40); RED CELL DISTRIBUTION WIDTH 14.7 % (11.5-14.5); WHITE BLOOD COUNT 8.7 x10^3/uL (4.0-11.0)
[2021-10-10 16:27] LABS: ALBUMIN 3.4 g/dL (3.4-5.0); ALBUMIN/GLOBULIN RATIO 0.9 (1.0-1.7); CALCIUM 10.5 mg/dL (8.5-10.1); CREATININE 1.4 mg/dL (0.6-1.0); GFR 37.1; POTASSIUM 4.5 mmol/L (3.5-5.1); TOTAL BILIRUBIN 0.2 mg/dL (0.2-1.0); TOTAL PROTEIN 7.2 g/dL (6.4-8.2)
[2021-10-10 16:48] LABS: BACTERIA,URINE MANY /HPF (0-FEW); CLARITY,URINE CLOUDY; COLOR,URINE YELLOW; GLUCOSE,URINE NEG (NEG); NITRITE,URINE NEG (NEG); SQUAMOUS EPITHELIAL CELL,UR FEW /LPF; UROBILINOGEN,URINE 0.2 mg/dL (0.2 mg/dL); WBC,URINE >40 /HPF (0-4)
--- NOTE | 2021-10-11 13:28 | RAD ---
US ABDOMEN COMPLETE History: Flank pain Comparison: CT abdomen and pelvis 01/12/2021 Technique: Sonographic examination of the abdomen. Findings: Pancreas: Visualized portions are unremarkable. Liver: The liver measures 16.6 cm. Liver echotexture is normal. No focal hepatic lesions. Hepatopet al flow in the portal vein. Gallbladder: No gallstones, wall thickening or pericholecystic fluid. Sonographic Espinoza's sign is re portedly negative. Bile ducts: The common duct measures 6 mm. Right kidney: 10.4 cm length. No mass or hydronephrosis. Multiple small echogenic foci. Multiple gloria gn anechoic renal cysts. Spleen: 9.3 cm length. No masses. Left kidney: 10.4 cm length. No mass or hydronephrosis. Multiple small echogenic foci. Multiple benig n anechoic renal cysts. Aorta/IVC: Visualized portions are unremarkable. Limited images of the bladder are unremarkable. Other: No ascites. Impression: 1. Multiple bilateral echogenic renal foci are favored to represent vascular calcifications when com pared to prior CT. Small nonobstructing nephroliths are not excluded. No hydronephrosis. Multiple sharon ign renal cysts. 2. No cholelithiasis or acute cholecystitis. Electronically signed by: Forest Lugo MD (10/11/2021 1:26 PM) [id number]
== END ==
LOC: US 15:44
PROVIDERS: ATTEND Family Medicine
DX: N28.1 Cyst of kidney, acquired (principal)
CPT/HCPCS: 36415; 76700; 80053; 81001; 83690; 85025